=== PATIENT | female | born 1990 | race Two or more races ===

== ENCOUNTER 2020-06-18 12:47 | Outpatient (REF) | payer OTHER, SELFPAY | END 2020-06-18 12:48 | disposition home or self-care (01) | LOC: HO.LAB 12:47 | PROVIDERS: Visit Provider Internal Medicine | DX: Z20.828 Contact with and (suspected) exposure to other viral communicable diseases (principal) | CPT/HCPCS: 87635 ==

== ENCOUNTER 2020-09-10 16:41 | Outpatient (REF) | payer OTHER, SELFPAY | END 2020-09-10 16:42 | disposition home or self-care (01) | LOC: HO.LAB 16:41 | PROVIDERS: Visit Provider Internal Medicine | DX: Z20.822 Contact with and (suspected) exposure to COVID-19 (principal) | CPT/HCPCS: 36415; C9803; U0003 ==

== ENCOUNTER 2020-09-27 08:47 | Outpatient (REF) | payer OTHER, SELFPAY | END 2020-09-27 08:48 | disposition home or self-care (01) | LOC: HO.LAB 08:47 | PROVIDERS: Visit Provider Internal Medicine | DX: Z20.822 Contact with and (suspected) exposure to COVID-19 (principal) | CPT/HCPCS: 36415; C9803; U0003 ==

== ENCOUNTER 2021-04-16 21:59 | Emergency (ER) | payer OTHER, SELFPAY ==
--- NOTE | ~2021-04-16 | XR_ITS ---
EXAMINATION: XR ANKLE, RIGHT CLINICAL INFORMATION: Fall. COMPARISON: Right ankle radiographs dated 06/17/2017. TECHNIQUE: AP, lateral, and mortise views of the right ankle. FINDINGS: No acute fracture or dislocation. The ankle mortise is maintained. No joint space narrowing or marginal osteophytes. No osseous erosion. No abnormal soft tissue calcification. Prominent lateral soft tissue swelling. XR/XR ankle RT 2V IMPRESSION: Prominent lateral soft tissue swelling without acute osseous abnormality.
[2021-04-16 22:14] VITALS: BP 106/67; PULSE 96; RESP 16; TEMP 36.8; O2SAT 98; BMI 40.2
--- NOTE | 2021-04-17 00:22 | ED.LOWEXIN ---
HPI - Extremity Injury (Lower) General Chief Complaint: Extremity Injury, Lower Stated Complaint: fall Time Seen by Provider: 04/17/21 00:08 Source: patient Mode of arrival: wheelchair Limitations: no limitations History of Present Illness HPI Narrative: [age] year female presenting complaint of right ankle pain status post miss stepping and twisting. Denies any other injury. Occurred couple hours prior to arrival. Onset (ago): hour(s) Injury: Right: ankle Type of Injury: inversion Place: home Severity: moderate Relieving factors: immobilization Exacerbating factors: weight bearing and palpation Associated symptoms: swelling Other symptoms: none Treatments prior to arrival: cold therapy Related Data Allergies Allergy/AdvReac Type Severity Reaction Status Date / Time No Known Allergies Allergy Verified 04/16/21 22:17 [No Known Allergies*] Review of Systems Review of Systems: Constitutional: No Weight loss, No Fever, No Chills, No Night Sweats, No Fatigue, No Malaise ENT/Mouth: No Hearing loss, No Ear Pain, No Nasal Congestion, No Sinus Pain, No Hoarseness, No sore throat, No Rhinorrhea, No Swallowing Difficulty Eyes: No Eye Pain, No Swelling, No Redness, No Foreign Body, No Discharge, No Vision Changes Cardiovascular: No Chest Pain, No SOB, No Dyspnea on Exertion, No Orthopnea, No Edema, No Palpitations Respiratory: No Cough, No Sputum, No Wheezing, No Smoke Exposure, No Dyspnea Gastrointestinal: No Nausea, No Vomiting, No Diarrhea, No Constipation, No abdominal Pain, No Hematochezia, No Melena Genitourinary: No Dysuria, No Urinary Frequency, No Hematuria, No Urinary Incontinence, No Urgency, No Flank Pain, No Urinary Flow Changes, No Hesitancy Musculoskeletal: No joint pain, No Myalgias, as noted per HPI Skin: No Skin Lesions, No rash Neuro: No Weakness, No Numbness, No Paresthesias, No Loss of Consciousness, No Dizziness, No Headache Psych: No Social Issues Heme/Lymph: No Bruising, No Bleeding,No Lymphadenopathy Endocrine: No Polyuria, No Polydipsia, No Temperature Intolerance Yes all other systems are reviewed and are negative [facility] Past Medical History Medical History (Updated 04/17/21 @ 00:26 by Kamron Fonseca NP) Anemia Asthma Social History Social History Advance Directives: No Advance Directives Information Provided: No Patient : No Physical Exam Vital Signs: Vital Signs: Last Vital Signs Temp 98.3 F 04/16/21 22:14 Pulse 96 04/16/21 22:14 Resp 16 04/16/21 22:14 BP 106/67 04/16/21 22:14 Pulse Ox 98 04/16/21 22:14 Body Mass Index 40.2 Const: General: cooperative and healthy appearing; No acute distress or intoxicated appearing Nutritional Appearance: average body habitus Orientation/consciousness: patient oriented x3 HENMT: Head: Yes normal to inspection Ears: hearing grossly normal bilaterally Resp: Effort & Inspection: normal respiratory effort Cardio: Jugular venous distension: no JVD : General: Yes no CVA tenderness Back/Spine/Pelvis: Back: no CVA tenderness Skin: General skin exam: no rashes or lesions noted Neuro: General: patient oriented x3 Extrem: General: Yes normal to inspection Right lower extremity: ankle Details: swelling (Neurovascular intact, cap refill within normal limits) Details: laterally Course Course Course Narrative: Patient fitted for an Aircast and crutches MDM - Extremity Injury (Lower) Differential Diagnosis Differential diagnosis: Likely ankle sprain and strain and ankle fracture Medical Records Attestation: I reviewed the patient's medical records. Lab Data Attestation: I reviewed the patient's lab results. Imaging Data Ankle x-ray: Radiologist's impression: [place] [id number] XRay Report Signed Patient: Sylvie Vidales MR#: [id number] : 1990 Acct:[id number] Age/Sex: 30 / F ADM Date: 04/16/21 Loc: HO.ED Attending Dr: Ordering Physician: Generic ED Physician Date of Service: 04/16/21 Procedure(s): XR ankle RT 2V Accession Number(s): [id number] cc: Generic ED Physician~ EXAMINATION: XR ANKLE, RIGHT CLINICAL INFORMATION: Fall.? COMPARISON: Right ankle radiographs dated 06/17/2017.? TECHNIQUE: AP, lateral, and mortise views of the right ankle. FINDINGS: No acute fracture or dislocation. The ankle mortise is maintained. No joint space narrowing or marginal osteophytes. No osseous erosion. No abnormal soft tissue calcification. Prominent lateral soft tissue swelling.? XR/XR ankle RT 2V IMPRESSION: Prominent lateral soft tissue swelling without acute osseous abnormality. Dictated By: DULCE ARNDT MD Signed By: <Electronically signed by DULCE ARNDT MD in OV> 04/16/21 [id number] DD/ [id number] TD/TT:? Paper Hanger: Discharge Plan Discharge Clinical Impression: Ankle sprain and strain Patient Disposition: Home, Self-Care Instructions: Crutch Instructions (ED), Ice Pack Application (ED), Ankle Strain (ED) Referrals: Physician,Unknown [Primary Care Provider] - 2 days
== END 2021-04-17 00:31 | disposition home or self-care (01) ==
PROVIDERS: Emergency Provider Emergency Medicine
DX: S93.401A Sprain of unspecified ligament of right ankle, initial encounter (principal); S96.911A Strain of unspecified muscle and tendon at ankle and foot level, right foot, initial encounter; X50.1XXA Overexertion from prolonged static or awkward postures, initial encounter; Y93.89 Activity, other specified; Y92.018 Other place in single-family (private) house as the place of occurrence of the external cause; Y99.9 Unspecified external cause status
CPT/HCPCS: 73600; 99283; 99284

== ENCOUNTER 2021-05-18 13:17 | Outpatient (REF) | payer OTHER, SELFPAY | END 2021-05-18 13:18 | disposition home or self-care (01) | LOC: HO.LAB 13:17 | PROVIDERS: Visit Provider Internal Medicine | DX: Z20.822 Contact with and (suspected) exposure to COVID-19 (principal) | CPT/HCPCS: C9803; U0003; U0005 ==

== ENCOUNTER 2021-08-11 15:54 | Emergency (ER) | payer OTHER, SELFPAY ==
[2021-08-11] VITALS (7 sets, daily range): BP systolic 101–130; BP diastolic 57–81; PULSE 73–94; RESP 16–18; TEMP 36.4–36.6; O2SAT 99–100; BMI 40.2
--- NOTE | 2021-08-11 17:04 | ED_ITS ---
HPI - General Adult General Chief complaint: Vaginal Bleeding Stated complaint: INCREASED LETHARGY,MENSTRUATION W/HX OF ANEMIA Time Seen by Provider: 08/11/21 16:14 Source: patient Mode of arrival: ambulatory History of Present Illness HPI narrative: 30-year-old female with a past medical history of anemia, asthma, presenting to the ED complaining of heavy vaginal bleeding with clots since yesterday, changing pad often. Admits started menstruation yesterday. Reports similar symptoms in the past. Reports near syncopal episode earlier today, nausea, vomiting, diarrhea and generalized fatigue. Denies abdominal pain, fever, chills, dysuria, vaginal discharge, LOC Onset (ago): day(s) Related Data Allergies Allergy/AdvReac Type Severity Reaction Status Date / Time No Known Allergies Allergy Verified 04/16/21 22:17 [No Known Allergies*] Review of Systems Review of Systems: Constitutional: No Fever, No Chills, No Night Sweats, + Fatigue, + Malaise ENT/Mouth: No Hearing loss, No Ear Pain, No Nasal Congestion, No sore throat, No Rhinorrhea, No Swallowing Difficulty Eyes: No Eye Pain, No Swelling, No Vision Changes Cardiovascular: No Chest Pain, No SOB, No Palpitations Respiratory: No Cough, No Dyspnea Gastrointestinal: + Nausea, + Vomiting, + Diarrhea, No Constipation, No Abdominal pain Genitourinary: + irregular bleeding, No Dysuria, No Urinary Frequency, No Hematuria, No Flank Pain Musculoskeletal: No joint pain, No Myalgias, No Joint Swelling Skin: No Skin Lesions, No rash Neuro: + Weakness, No Numbness, No Paresthesias, No Loss of Consciousness, + Lightheadedness, No Headache Yes all other systems are reviewed and are negative [facility] Past Medical History Attestation statement: The following information was validated with the patient. Medical History Anemia Asthma Social History Social History Advance Directives: No Advance Directives Information Provided: Yes Physical Exam Vital Signs: Vital Signs: Last Vital Signs Temp 98 F 08/11/21 16:08 Pulse 84 08/11/21 17:53 Resp 16 08/11/21 17:53 BP 130/81 08/11/21 17:53 Pulse Ox 99 08/11/21 17:53 BMI result Body Mass Index 40.2 Const: General: cooperative, healthy appearing and no acute distress Orientation/consciousness: patient oriented x3 Limitations: no limitations HENMT: Head: Yes normal to inspection Ears: hearing grossly normal bilaterally General nose exam: Normal external nose present Face and sinus: Yes normal facial exam Eyes: General: appearance normal, both eyes and all related structures EOM: EOMs intact bilaterally Neck: Neck: Yes normal visual inspection and Yes no meningeal signs Resp: Effort & Inspection: normal respiratory effort and no respiratory distress Auscultation: clear to auscultation bilaterally, no rales, no rhonchi and no wheezes Cardio: Rate: regular rate Heart sounds: S1 normal heart sound present and S2 normal heart sound present GI: Inspection: Yes normal to inspection Palpation (GI): Soft to palpation, nontender, no guarding and not rigid : Other: Vaginal bleeding in the vault, cleared with Q-tips, bleeding from Os, no active hemorrhage. No CMT or adnexal tenderness General: Yes no CVA tenderness Speculum Exam - Vagina: vaginal bleeding and nontender Speculum Exam - Cervix: nontender Bimanual exam- vagina & uterus: normal bimanual exam, No Cervical tenderness present and no cervical motion tenderness Bimanual Exam- Adnexa, other: normal adnexae and no tenderness OB/external & speculum: vaginal bleeding; No vaginal discharge Back/Spine/Pelvis: Back: no CVA tenderness Skin: Rashes: no rashes Wounds: no wounds Neuro: General: patient oriented x3 and no meningeal signs Gait exam (Neuro): Normal gait present Extrem: General: Yes normal to inspection Course Course Course Narrative: -1751--noted leukocytosis of 19.1 appears chronic, also likely reactive from nausea/vomiting. Low concern for infectious etiology or sepsis -H&H with drop from priors to 8.8 / 29.5 > will obtain 3 hour repeat. Type and screen ordered. Blood consent signed and in chart -orthostatic vital signs negative -1800-- ED care transferred to SHER[facility] Thomas pending remaining labs, repeat 3hr CBC, UA/urine , orthostatics and re-evaluation. Medical Decision Making MDM Narrative Medical decision making narrative: 30-year-old female with a past medical history of anemia, asthma, presenting to the ED complaining of heavy vaginal bleeding with clots since yesterday, changing pad often. Reports near syncopal episode earlier today, nausea, vomiting, diarrhea and generalized fatigue. On exam vital signs stable, no tachycardia, NAD, abdomen soft/nontender, vaginal bleeding noted in vault, no active hemorrhage, cleared with Q-tips, no CMT or adnexal tenderness. Concern for DUB/menorrhagia. Rule out and anemia. Low concern for ectopic, cyst, appendicitis or diverticulitis Plan: Labs, UA, , IVF, orthostatics Lab Data Result diagrams: 08/11/21 17:32 08/11/21 17:32 Labs: Lab Results 08/11/21 08/11/21 Range/Units 17:32 17:32 WBC 19.1 H (4.8-10.8) X10*3/uL RBC 3.76 L (4.20-5.50) X10*6/uL Hgb 8.8 L (12.0-16.0) g/dl Hct 29.5 L (37.0-47.0) % MCV 78.5 L (80.0-98.0) fL MCH 23.4 L (27.0-33.0) pg MCHC 29.8 L (31.0-35.0) g/dl RDW 16.3 H (11.0-16.0) % Plt Count 510 H (160-400) X10*3/uL MPV 8.8 L (9.4-12.3) fL Immature Gran % (Auto) 0.4 (0.0-0.4) % Neut % (Auto) 88.6 H (45-73) % Lymph % (Auto) 6.1 L (20-40) % Mower % (Auto) 4.3 (2-11) % Eos % (Auto) 0.2 (0-4) % Baso % (Auto) 0.4 (0-2) % Lymph # (Auto) 1.2 (1.2-4.9) X10*3/uL Mower # (Auto) 0.8 (0.1-1.2) X10*3/uL Eos # (Auto) 0.0 (0.0-0.4) X10*3/uL Baso # (Auto) 0.1 (0.0-0.2) X10*3/uL Abs Immat Gran (auto) 0.08 H (0.00-0.03) X10*3/uL Absolute Neuts (auto) 16.9 H (2.0-8.3) x10*3/uL Absolute Nucleated RBC 0.000 (0.0-0.012) X10*3/uL Nucleated RBC % (auto) 0.0 (0.0-0.2) /100WBC Sodium 138 (135-145) mmol/L Potassium 4.2 (3.3-5.1) mmol/L Chloride 107 (96-108) mmol/L Carbon Dioxide 20 L (22-29) mmol/L Anion Gap 15 (12-20) BUN 17 H (9-16) mg/dL Creatinine 0.87 (0.5-1.4) mg/dL Estim Creat Clear Calc 105.3 Estimated GFR > 60 Random Glucose 80 (60-115) mg/dL Calcium 9.4 (8.4-10.2) mg/dL Magnesium 2.1 (1.6-2.6) mg/dL Total Bilirubin 0.8 (0.0-1.0) mg/dL Direct Bilirubin 0.4 (0.0-0.5) mg/dL AST 17 (5-31) U/L ALT 15 (0-31) U/L Alkaline Phosphatase 78 (39-117) U/L Total Protein 7.8 (6.5-8.0) g/dL Albumin 4.6 (3.5-5.0) g/dL Lipase 32 (8-78) U/L Beta HCG, Quant < 2 mIU/mL Discharge Plan Discharge Clinical Impression: Anemia Menorrhagia Qualifiers: Menorrhagia type: with regular cycle Qualified Code(s): N92.0 - Excessive and frequent menstruation with regular cycle Instructions: Menorrhagia (ED) Referrals: Vipin Dempsey MD [Physician] - 2 days
[2021-08-11 17:37] LABS: MANUAL DIFF FLAG NO
[2021-08-11 17:46] LABS: Basophils Absolute Auto 0.1 X10*3/uL (0.0-0.2); Basophils Percent Auto 0.4 % (0-2); Eosinophils Percent Auto 0.2 % (0-4); Hematocrit 29.5 % (37.0-47.0); Hemoglobin 8.8 g/dl (12.0-16.0); Imm Gran Abs Auto 0.08 X10*3/uL (0.00-0.03); Imm Gran Pct Auto 0.4 % (0.0-0.4); Lymphocytes Absolute Auto 1.2 X10*3/uL (1.2-4.9); Lymphocytes Percent Auto 6.1 % (20-40); Mean Corpuscular HGB Conc 29.8 g/dl (31.0-35.0); Mean Corpuscular Hemoglobin 23.4 pg (27.0-33.0); Mean Corpuscular Volume 78.5 fL (80.0-98.0); Mean Platelet Volume 8.8 fL (9.4-12.3); Monocytes Absolute Auto 0.8 X10*3/uL (0.1-1.2); Monocytes Percent Auto 4.3 % (2-11); Neutrophils Absolute Auto 16.9 x10*3/uL (2.0-8.3); Neutrophils Percent Auto 88.6 % (45-73); Platelet Count 510 X10*3/uL (160-400); Red Blood Count 3.76 X10*6/uL (4.20-5.50); Red Cell Distribution Width 16.3 % (11.0-16.0); White Blood Count 19.1 X10*3/uL (4.8-10.8)
[2021-08-11] MEDS: 0.9 % Sodium Chloride 1,000 ML 999 ML IVCONT (17:46)
[2021-08-11 18:01] LABS: Alanine Aminotransferase 15 U/L (0-31); Albumin Level 4.6 g/dL (3.5-5.0); Alkaline Phosphatase 78 U/L (39-117); Anion Gap 15 (12-20); Aspartate Amino Transferase 17 U/L (5-31); Bilirubin Direct 0.4 mg/dL (0.0-0.5); Bilirubin Total 0.8 mg/dL (0.0-1.0); Blood Urea Nitrogen 17 mg/dL (9-16); Calcium 9.4 mg/dL (8.4-10.2); Carbon Dioxide 20 mmol/L (22-29); Chloride 107 mmol/L (96-108); Creatinine Clr Calc Pharmacy 105.3; Estimated Glomerular Filt Rate > 60; Glucose Random 80 mg/dL (60-115); Lipase 32 U/L (8-78); Magnesium 2.1 mg/dL (1.6-2.6); Potassium 4.2 mmol/L (3.3-5.1); Sodium 138 mmol/L (135-145); Total Protein 7.8 g/dL (6.5-8.0)
[2021-08-11 18:07] LABS: HCG Quantitative < 2 mIU/mL
[2021-08-11 20:08] LABS: MANUAL DIFF FLAG NO
[2021-08-11 20:09] LABS: Basophils Absolute Auto 0.1 X10*3/uL (0.0-0.2); Basophils Percent Auto 0.5 % (0-2); Eosinophils Percent Auto 0.1 % (0-4); Hematocrit 27.7 % (37.0-47.0); Hemoglobin 8.2 g/dl (12.0-16.0); Imm Gran Abs Auto 0.04 X10*3/uL (0.00-0.03); Imm Gran Pct Auto 0.3 % (0.0-0.4); Lymphocytes Absolute Auto 1.4 X10*3/uL (1.2-4.9); Lymphocytes Percent Auto 9.4 % (20-40); Mean Corpuscular HGB Conc 29.6 g/dl (31.0-35.0); Mean Corpuscular Hemoglobin 23.3 pg (27.0-33.0); Mean Corpuscular Volume 78.7 fL (80.0-98.0); Mean Platelet Volume 8.7 fL (9.4-12.3); Monocytes Absolute Auto 0.5 X10*3/uL (0.1-1.2); Monocytes Percent Auto 3.4 % (2-11); Neutrophils Absolute Auto 12.8 x10*3/uL (2.0-8.3); Neutrophils Percent Auto 86.3 % (45-73); Platelet Count 468 X10*3/uL (160-400); Red Blood Count 3.52 X10*6/uL (4.20-5.50); Red Cell Distribution Width 16.5 % (11.0-16.0); White Blood Count 14.8 X10*3/uL (4.8-10.8)
== END 2021-08-11 21:40 | disposition home or self-care (01) ==
PROVIDERS: Physician Assistant; Emergency Provider Emergency Medicine
DX: D64.9 Anemia, unspecified (principal); N92.0 Excessive and frequent menstruation with regular cycle; R11.2 Nausea with vomiting, unspecified
CPT/HCPCS: 36415; 80048; 80076; 83690; 83735; 84702; 85025; 86850; 86900; 86901; 96360; 99284

== ENCOUNTER 2021-08-24 11:25 | Outpatient (REF) | payer OTHER, SELFPAY ==
[2021-08-24 13:06] LABS: Hematocrit 34.7 % (37.0-47.0); Hemoglobin 10.4 g/dl (12.0-16.0); Mean Corpuscular Hemoglobin 25.9 pg (27.0-33.0); Mean Corpuscular Volume 86.3 fL (80.0-98.0); Mean Platelet Volume 8.9 fL (9.4-12.3); Platelet Count 509 X10*3/uL (160-400); Red Blood Count 4.02 X10*6/uL (4.20-5.50); Red Cell Distribution Width 23.1 % (11.0-16.0); White Blood Count 9.2 X10*3/uL (4.8-10.8)
[2021-08-24 13:45] LABS: HCG Quantitative < 2 mIU/mL; TSH reflex Free T4 0.54 uIU/mL (0.32-4.0)
[2021-08-24 15:23] LABS: CT PCR NOT DETECTED (Not Detect.); NG PCR NOT DETECTED (Not Detect.)
== END 2021-08-24 11:26 | disposition home or self-care (01) ==
LOC: HO.LAB 11:25
PROVIDERS: Visit Provider Obstetrics & Gynecology
DX: Z01.419 Encounter for gynecological examination (general) (routine) without abnormal findings (principal); N93.9 Abnormal uterine and vaginal bleeding, unspecified; Z11.3 Encounter for screening for infections with a predominantly sexual mode of transmission; Z11.8 Encounter for screening for other infectious and parasitic diseases; Z13.29 Encounter for screening for other suspected endocrine disorder; Z82.49 Family history of ischemic heart disease and other diseases of the circulatory system
CPT/HCPCS: 36415; 81003; 81025; 84443; 84702; 85027; 87491; 87591; 88142; 99202

== ENCOUNTER 2021-09-06 01:54 | Emergency (ER) | payer OTHER, SELFPAY ==
[2021-09-06] VITALS (7 sets, daily range): BP systolic 71–111; BP diastolic 41–75; PULSE 93–124; RESP 12–18; TEMP 34.7–36.6; O2SAT 98–100; BMI 40.2
[2021-09-06] MEDS: 0.9 % Sodium Chloride 1,000 ML 999 ML IVCONT (02:31)
[2021-09-06 02:34] LABS: Glucose, Whole Blood 122 mg/dL (60-115)
--- NOTE | 2021-09-06 02:48 | ED.FEMALEGU ---
HPI - Female Genitourinary General Chief complaint: Vaginal Bleeding Stated complaint: vaginal bleeding Time Seen by Provider: 09/06/21 02:16 Source: patient Mode of arrival: ambulatory Limitations: no limitations History of Present Illness HPI Narrative: Patient comes to emergency room complaining of dizziness, vaginal bleeding for 3 days. Patient states that she started her menstrual period 3 days ago. Patient states that she is using approximately 5-6 pads per hour in the last 24 hours. Patient states that she is known to have very heavy menstrual periods. Patient is being seen at [facility] by Hematology/Oncology for evaluation of genetic bleeding diseases, which is still in process. Patient has received 1 iron transfusion, no blood transfusions. Patient has also been evaluated by Dr. Dempsey from [facility] Gy[facility], patient states that the next plan is to get a Mirena IUD. Patient complaining of dizziness when standing an feeling overall sick and weak Related Data Home Medications Medication Instructions Recorded Confirmed budesonide-formoterol HFA 160 2 puff INHALATION BID 08/24/21 mcg-4.5 mcg/actuation aerosol inhaler (Symbicort) ibuprofen 200 mg tablet 400 mg PO Q6H 08/24/21 loratadine 10 mg tablet 10 mg PO DAILY 08/24/21 norethindrone (contraceptive) 0.35 0.35 mg PO DAILY 08/24/21 mg tablet Allergies Allergy/AdvReac Type Severity Reaction Status Date / Time No Known Allergies Allergy Verified 08/24/21 11:35 [No Known Allergies*] Review of Systems Review of Systems: Constitutional : No Weight loss, No Fever, No Chills, No Night Sweats, complaining of weakness, generalized malaise ENT/Mouth : No Hearing loss, No Ear Pain, No Nasal Congestion, No Sinus Pain, No Hoarseness, No sore throat, No Rhinorrhea, No Swallowing Difficulty Eyes: No Eye Pain, No Swelling, No Redness, No Foreign Body, No Discharge, No Vision Changes Cardiovascular : No Chest Pain, No SOB, No Dyspnea on Exertion, No Orthopnea, No Edema, No Palpitations Respiratory : No Cough, No Sputum, No Wheezing, No Smoke Exposure, No Dyspnea Gastrointestinal : No Nausea, No Vomiting, No Diarrhea, No Constipation, No abdominal Pain, No Hematochezia, No Melena Genitourinary : Complaining of heavy vaginal bleeding for 3 days. No Dysuria, No Urinary Frequency, No Hematuria, No Urinary Incontinence, No Urgency, No Flank Pain, No Urinary Flow Changes, No Hesitancy Musculoskeletal : No joint pain, No Myalgias, No Joint Swelling Skin : No Skin Lesions, No rash Neuro : No Weakness, No Numbness, No Paresthesias, No Loss of Consciousness, no headache, complaining of dizziness/lightheadedness Psych : No Anxiety/Panic, No Depression, No SI/HI/AH/VH, No Social Issues, Heme/Lymph: No Bruising, No Bleeding,No Lymphadenopathy Endocrine : No Polyuria, No Polydipsia, No Temperature Intolerance [facility] Past Medical History Medical History Anemia Asthma Surgical History Hx of cholecystectomy Family History Family History Paternal Grandmother Colon cancer History of breast cancer Maternal Grandmother Ovarian cancer Mother Varicose vein of leg Hx of blood clots Social History Social History (Updated 08/24/21 @ 11:39 by Theresa Hickman [facility]) Alcohol intake: current Patient Tobacco Use Status: Never used Tobacco Advance Directives: No Advance Directives Information Provided: Yes Patient : No Physical Exam Vital Signs: Vital Signs: Last Vital Signs Temp 97.9 F 09/06/21 06:00 Pulse 94 09/06/21 06:00 Resp 14 09/06/21 06:00 BP 103/71 09/06/21 06:00 Pulse Ox 100 09/06/21 06:00 BMI result Body Mass Index 40.2 Const: Other: Appearance: Alert. Oriented X3. Ill-appearing Eyes: Pupils equal, round and reactive to light. ENT: Pharynx normal. Neck: Normal inspection. Neck supple. No lymph nodes noted. No crepitus CVS: Normal heart rate and rhythm. Pulses normal. Normal S1 and S2 Respiratory: No respiratory distress. Breath sounds normal. No Wheezing. No rales Abdomen: Soft and nontender. No rigidity. No distention. : Small to moderate amount in the vaginal vault, the cervix has a slight yellowish discoloration, no active bleeding. One suprapubic pressure was applied, no additional bleeding visualized through the cervix. Skin: Skin warm and clammy. Diffusely pale Extremities: No lower extremity edema. No lower extremity edema. No Lacerations. No Rash Neuro: Oriented X 3. No motor deficit. No sensory deficit. Moving all extermities. No slurred speech. Course Course Course Narrative: Patient's initial blood pressure in the 70s. After 1 L of fluid patient's heart rate improved to 115. All of her labs are pending Patient's H and H drop. At this time, patient does not need transfusion. I discussed the patient with Dr. Dempsey. Patient will be seen 1st thing in the morning. We are going to discharge her and she wheels shortly receive a phone call. Patient needs today an endometrial biopsy and Mirena placement. Patient agrees with plan. MDM - Female Genitourinary Lab Data Result diagrams: 09/06/21 05:21 09/06/21 02:32 Labs: Lab Results 09/06/21 09/06/21 09/06/21 Range/Units 02:30 02:32 02:32 WBC 18.4 H (4.8-10.8) X10*3/uL RBC 3.66 L (4.20-5.50) X10*6/uL Hgb 9.7 L (12.0-16.0) g/dl Hct 32.1 L (37.0-47.0) % MCV 87.7 (80.0-98.0) fL MCH 26.5 L (27.0-33.0) pg MCHC 30.2 L (31.0-35.0) g/dl RDW 20.8 H (11.0-16.0) % Plt Count 526 H (160-400) X10*3/uL MPV 9.4 (9.4-12.3) fL Immature Gran % (Auto) 0.5 H (0.0-0.4) % Neut % (Auto) 64.7 (45-73) % Lymph % (Auto) 27.5 (20-40) % [place] % (Auto) 5.2 (2-11) % Eos % (Auto) 1.4 (0-4) % Baso % (Auto) 0.7 (0-2) % Lymph # (Auto) 5.1 H (1.2-4.9) X10*3/uL [place] # (Auto) 1.0 (0.1-1.2) X10*3/uL Eos # (Auto) 0.3 (0.0-0.4) X10*3/uL Baso # (Auto) 0.1 (0.0-0.2) X10*3/uL Abs Immat Gran (auto) 0.09 H (0.00-0.03) X10*3/uL Absolute Neuts (auto) 11.9 H (2.0-8.3) x10*3/uL Absolute Nucleated RBC 0.000 (0.0-0.012) X10*3/uL Nucleated RBC % (auto) 0.0 (0.0-0.2) /100WBC Smear Tech's Comments VERIFIED Sodium 139 (135-145) mmol/L Potassium 4.3 (3.3-5.1) mmol/L Chloride 106 (96-108) mmol/L Carbon Dioxide 21 L (22-29) mmol/L Anion Gap 16 (12-20) BUN 16 (9-16) mg/dL Creatinine 0.99 (0.5-1.4) mg/dL Estim Creat Clear Calc 92.6 Estimated GFR > 60 POC Glucose 122 H (60-115) mg/dL Random Glucose 142 H (60-115) mg/dL Calcium 9.4 (8.4-10.2) mg/dL Total Bilirubin 0.4 (0.0-1.0) mg/dL Direct Bilirubin < 0.2 (0.0-0.5) mg/dL AST 18 (5-31) U/L ALT 25 (0-31) U/L Alkaline Phosphatase 77 (39-117) U/L Total Protein 7.2 (6.5-8.0) g/dL Albumin 4.4 (3.5-5.0) g/dL Beta HCG, Quant < 2 mIU/mL COVID-19 (JOANNA) (Negative) COVID-19 Clin Com Blood Type Antibody Screen 09/06/21 09/06/21 09/06/21 Range/Units 02:33 05:13 05:21 WBC (4.8-10.8) X10*3/uL RBC (4.20-5.50) X10*6/uL Hgb 8.2 L (12.0-16.0) g/dl Hct 26.3 L (37.0-47.0) % MCV (80.0-98.0) fL MCH (27.0-33.0) pg MCHC (31.0-35.0) g/dl RDW (11.0-16.0) % Plt Count (160-400) X10*3/uL MPV (9.4-12.3) fL Immature Gran % (Auto) (0.0-0.4) % Neut % (Auto) (45-73) % Lymph % (Auto) (20-40) % [place] % (Auto) (2-11) % Eos % (Auto) (0-4) % Baso % (Auto) (0-2) % Lymph # (Auto) (1.2-4.9) X10*3/uL [place] # (Auto) (0.1-1.2) X10*3/uL Eos # (Auto) (0.0-0.4) X10*3/uL Baso # (Auto) (0.0-0.2) X10*3/uL Abs Immat Gran (auto) (0.00-0.03) X10*3/uL Absolute Neuts (auto) (2.0-8.3) x10*3/uL Absolute Nucleated RBC (0.0-0.012) X10*3/uL Nucleated RBC % (auto) (0.0-0.2) /100WBC Smear Tech's Comments Sodium (135-145) mmol/L Potassium (3.3-5.1) mmol/L Chloride (96-108) mmol/L Carbon Dioxide (22-29) mmol/L Anion Gap (12-20) BUN (9-16) mg/dL Creatinine (0.5-1.4) mg/dL Estim Creat Clear Calc Estimated GFR POC Glucose (60-115) mg/dL Random Glucose (60-115) mg/dL Calcium (8.4-10.2) mg/dL Total Bilirubin (0.0-1.0) mg/dL Direct Bilirubin (0.0-0.5) mg/dL AST (5-31) U/L ALT (0-31) U/L Alkaline Phosphatase (39-117) U/L Total Protein (6.5-8.0) g/dL Albumin (3.5-5.0) g/dL Beta HCG, Quant mIU/mL COVID-19 (JOANNA) Negative (Negative) COVID-19 Clin Com See Note Blood Type O Positive Antibody Screen NEGATIVE Discharge Plan Discharge Clinical Impression: Menorrhagia Patient Disposition: Home, Self-Care Instructions: Menorrhagia (ED) Additional Instructions: You will receive a phone call from Dr. Dempsey's office this morning. You will likely get an endometrial biopsy and an IUD insertion. Please follow-up with your primary care physician tomorrow. If you have any worsening or new symptoms, please return to the emergency room or call 911 Prescriptions: No Action norethindrone (contraceptive) 0.35 mg tablet 0.35 mg PO DAILY RF: 0 loratadine 10 mg tablet 10 mg PO DAILY RF: 0 budesonide-formoterol [Symbicort] 160-4.5 mcg/actuation HFA aerosol inhaler 2 puff inhalation BID RF: 0 ibuprofen 200 mg tablet 400 mg PO Q6H RF: 0 Referrals: Vipin Dempsey MD [Physician] - 09/06/21 9:00 am (Menorrhagia)
[2021-09-06 02:53] LABS: Basophils Absolute Auto 0.1 X10*3/uL (0.0-0.2); Basophils Percent Auto 0.7 % (0-2); Eosinophils Absolute Auto 0.3 X10*3/uL (0.0-0.4); Eosinophils Percent Auto 1.4 % (0-4); Hematocrit 32.1 % (37.0-47.0); Hemoglobin 9.7 g/dl (12.0-16.0); Imm Gran Abs Auto 0.09 X10*3/uL (0.00-0.03); Imm Gran Pct Auto 0.5 % (0.0-0.4); Lymphocytes Absolute Auto 5.1 X10*3/uL (1.2-4.9); Lymphocytes Percent Auto 27.5 % (20-40); MANUAL DIFF FLAG SCAN; Mean Corpuscular HGB Conc 30.2 g/dl (31.0-35.0); Mean Corpuscular Hemoglobin 26.5 pg (27.0-33.0); Mean Corpuscular Volume 87.7 fL (80.0-98.0); Mean Platelet Volume 9.4 fL (9.4-12.3); Monocytes Percent Auto 5.2 % (2-11); Neutrophils Absolute Auto 11.9 x10*3/uL (2.0-8.3); Neutrophils Percent Auto 64.7 % (45-73); Platelet Count 526 X10*3/uL (160-400); Red Blood Count 3.66 X10*6/uL (4.20-5.50); Red Cell Distribution Width 20.8 % (11.0-16.0); SCAN SMEAR FLAG 1; White Blood Count 18.4 X10*3/uL (4.8-10.8)
[2021-09-06 03:04] LABS: Alanine Aminotransferase 25 U/L (0-31); Albumin Level 4.4 g/dL (3.5-5.0); Alkaline Phosphatase 77 U/L (39-117); Anion Gap 16 (12-20); Aspartate Amino Transferase 18 U/L (5-31); Bilirubin Direct < 0.2 mg/dL (0.0-0.5); Bilirubin Total 0.4 mg/dL (0.0-1.0); Blood Urea Nitrogen 16 mg/dL (9-16); Calcium 9.4 mg/dL (8.4-10.2); Carbon Dioxide 21 mmol/L (22-29); Chloride 106 mmol/L (96-108); Creatinine Clr Calc Pharmacy 92.6; Estimated Glomerular Filt Rate > 60; Glucose Random 142 mg/dL (60-115); Potassium 4.3 mmol/L (3.3-5.1); Sodium 139 mmol/L (135-145); Total Protein 7.2 g/dL (6.5-8.0)
[2021-09-06 03:11] LABS: HCG Quantitative < 2 mIU/mL
[2021-09-06 03:21] LABS: SLIDE REVIEW VERIFIED
--- NOTE | 2021-09-06 03:23 | PC.NURSE ---
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
[2021-09-06 05:26] LABS: Hematocrit 26.3 % (37.0-47.0); Hemoglobin 8.2 g/dl (12.0-16.0)
[2021-09-06 05:52] LABS: COVID-19 Test Negative (Negative); IDNOW Serial# 9DD0AD1C
--- NOTE | 2021-09-06 08:00 | PC.NURSE ---
0715 - Report from Allyson ORTIZ Pt awake, alert and oriented x 3. Skin warm and dry. Resp unlabored. Denies n/v. no c/o pain presently. No acute bleeding. plan is for dc home and follow up with electrical test engineer. Pt agreeable to plan
== END 2021-09-06 08:06 | disposition home or self-care (01) ==
PROVIDERS: Emergency Provider Emergency Medicine; PCP Internal Medicine
DX: N92.0 Excessive and frequent menstruation with regular cycle (principal); R42 Dizziness and giddiness; Z20.822 Contact with and (suspected) exposure to COVID-19; D64.9 Anemia, unspecified
CPT/HCPCS: 36415; 58100; 58300; 80048; 80076; 82947; 84702; 85014; 85018; 85025; 86850; 86900; 86901; 87635; 96360; 99212; 99284; 99285; J7298

== ENCOUNTER 2021-09-06 12:20 | Outpatient (REF) | payer OTHER, SELFPAY | END 2021-09-06 12:21 | disposition home or self-care (01) | LOC: HO.LAB 12:20 | PROVIDERS: Visit Provider Obstetrics & Gynecology | DX: N93.9 Abnormal uterine and vaginal bleeding, unspecified (principal) | CPT/HCPCS: 88305 ==

== ENCOUNTER 2021-09-26 11:14 | Outpatient (REF) | payer OTHER, SELFPAY ==
--- NOTE | ~2021-09-26 | US_ITS ---
EXAMINATION: US PELVIS CLINICAL INFORMATION: Abnormal uterine bleeding COMPARISON: None TECHNIQUE: Ultrasound of the pelvis is performed using both transabdominal and transvaginal transducers along with Doppler. Transvaginal imaging is performed due to inadequate visualization transabdominally. FINDINGS: The uterus is anteverted and retroflexed and measures 11.3 x 5.2 x 6 cm in dimension. There is an IUD in the uterus in satisfactory position. Endometrial thickness measures 1.2 cm. There are 3 uterine fibroids. There is a 4.3 x 4 x 4.3 cm central fibroid in the body of the uterus that abut the endometrium suggestive of a subcutaneous fibroid. There is a 2.2 x 2.1 x 2.1 cm anterior uterine body intramural fibroid. There is a 1.6 x 1.7 x 1.8 cm right intramural body fibroid. The right ovary is enlarged and measures 4.1 x 4.3 x 4.1 cm, volume 38 mL. There is a 4 x 3 x 4 cm simple cyst. The left ovary is enlarged and measures 7.8 x 3.5 x 4.3 cm, volume 61 mL. There is a 5.4 x 2.9 x 3 cm simple left ovarian cyst. There is no fluid in the pelvis. US/US pelvic and transvaginal IMPRESSION: Enlarged fibroid uterus. Largest fibroid is a 4.3 x 4 x 4.3 cm central uterine body fibroid that abut the endometrium suggestive of a submucosal fibroid. IUD in the uterus satisfactory position. Large bilateral simple ovarian cysts measuring 3 x 4 cm on the right and 3 x 5 cm on the left.
== END 2021-09-26 11:15 | disposition home or self-care (01) ==
LOC: HO.US 11:14
PROVIDERS: Visit Provider Obstetrics & Gynecology
DX: N93.9 Abnormal uterine and vaginal bleeding, unspecified (principal)
CPT/HCPCS: 76830; 76856

== ENCOUNTER → 2021-10-19 15:35 | Outpatient (BNVA) | payer OTHER, SELFPAY | PROVIDERS: Visit Provider Obstetrics & Gynecology | DX: N93.9 Abnormal uterine and vaginal bleeding, unspecified (principal); D64.9 Anemia, unspecified; D21.9 Benign neoplasm of connective and other soft tissue, unspecified | CPT/HCPCS: 99212 ==

== ENCOUNTER 2021-11-28 11:16 | Outpatient (REF) | payer OTHER, SELFPAY ==
[2021-11-28 12:46] LABS: Hematocrit 28.7 % (37.0-47.0); Hemoglobin 8.8 g/dl (12.0-16.0); Mean Corpuscular HGB Conc 30.7 g/dl (31.0-35.0); Mean Corpuscular Hemoglobin 27.4 pg (27.0-33.0); Mean Corpuscular Volume 89.4 fL (80.0-98.0); Mean Platelet Volume 9.2 fL (9.4-12.3); Platelet Count 423 X10*3/uL (160-400); Red Blood Count 3.21 X10*6/uL (4.20-5.50); Red Cell Distribution Width 14.5 % (11.0-16.0); White Blood Count 9.9 X10*3/uL (4.8-10.8)
== END 2021-11-28 11:17 | disposition home or self-care (01) ==
LOC: HO.LAB 11:16
PROVIDERS: Visit Provider Obstetrics & Gynecology
DX: D21.9 Benign neoplasm of connective and other soft tissue, unspecified (principal); D64.9 Anemia, unspecified
CPT/HCPCS: 36415; 85027; 99212

== ENCOUNTER 2021-11-29 07:43 | Outpatient (REF) | payer OTHER, SELFPAY ==
[2021-11-29 08:23] LABS: COVID-19 Test Negative (Negative); IDNOW Serial# 16C4AD1C
== END 2021-11-29 07:44 | disposition home or self-care (01) ==
LOC: HO.LAB 07:43
PROVIDERS: Visit Provider Internal Medicine
DX: Z20.822 Contact with and (suspected) exposure to COVID-19 (principal)
CPT/HCPCS: 87635; C9803

== ENCOUNTER 2021-12-26 20:42 | Emergency (ER) | payer BC, SELFPAY ==
[2021-12-26 20:46] VITALS: BP 120/82; PULSE 130; RESP 18; TEMP 36.7; O2SAT 98; BMI 39.3
[2021-12-26 20:58] LABS: MANUAL DIFF FLAG NO
[2021-12-26 20:59] LABS: Basophils Absolute Auto 0.1 X10*3/uL (0.0-0.2); Basophils Percent Auto 0.9 % (0-2); Eosinophils Absolute Auto 0.1 X10*3/uL (0.0-0.4); Eosinophils Percent Auto 0.6 % (0-4); Hematocrit 30.3 % (37.0-47.0); Hemoglobin 9.6 g/dl (12.0-16.0); Imm Gran Abs Auto 0.06 X10*3/uL (0.00-0.03); Imm Gran Pct Auto 0.4 % (0.0-0.4); Lymphocytes Absolute Auto 2.6 X10*3/uL (1.2-4.9); Lymphocytes Percent Auto 18.8 % (20-40); Mean Corpuscular HGB Conc 31.7 g/dl (31.0-35.0); Mean Corpuscular Hemoglobin 29.6 pg (27.0-33.0); Mean Corpuscular Volume 93.5 fL (80.0-98.0); Mean Platelet Volume 9.5 fL (9.4-12.3); Monocytes Absolute Auto 0.6 X10*3/uL (0.1-1.2); Monocytes Percent Auto 4.4 % (2-11); Neutrophils Absolute Auto 10.5 x10*3/uL (2.0-8.3); Neutrophils Percent Auto 74.9 % (45-73); Platelet Count 359 X10*3/uL (160-400); Red Blood Count 3.24 X10*6/uL (4.20-5.50); Red Cell Distribution Width 19.3 % (11.0-16.0)
[2021-12-26 21:16] LABS: Alanine Aminotransferase 17 U/L (0-31); Albumin Level 4.2 g/dL (3.5-5.0); Alkaline Phosphatase 62 U/L (39-117); Anion Gap 10 (12-20); Aspartate Amino Transferase 20 U/L (5-31); Bilirubin Total 0.6 mg/dL (0.0-1.0); Blood Urea Nitrogen 15 mg/dL (9-16); Calcium 8.5 mg/dL (8.4-10.2); Carbon Dioxide 21 mmol/L (22-29); Chloride 109 mmol/L (96-108); Creatinine Clr Calc Pharmacy 114.9; Estimated Glomerular Filt Rate > 60; Glucose Random 105 mg/dL (60-115); Potassium 3.8 mmol/L (3.3-5.1); Sodium 136 mmol/L (135-145); Total Protein 6.8 g/dL (6.5-8.0)
--- NOTE | 2021-12-26 22:36 | ED.PREGNANCY ---
HPI - General Chief complaint: Vaginal Bleeding Stated complaint: vaginal bleeding Time Seen by Provider: 12/26/21 22:33 Source: patient Mode of arrival: ambulatory Limitations: no limitations History of Present Illness HPI Narrative: Patient with heavy periods since July. Patient has been on tranxamic acid. States she is passing clots. This period started 3 days ago, states she passed out with this period. Complaint: vaginal bleeding Severity: moderate Quality: Cramping Vaginal bleeding: heavy and clots Related Data Home Medications Medication Instructions Recorded Confirmed budesonide-formoterol HFA 160 2 puff INHALATION BID 08/24/21 mcg-4.5 mcg/actuation aerosol inhaler (Symbicort) ibuprofen 200 mg tablet 400 mg PO Q6H 08/24/21 loratadine 10 mg tablet 10 mg PO DAILY 08/24/21 Previous Rx's Medication Instructions Recorded tranexamic acid 650 mg tablet 1,300 mg PO TID 5 Days #30 tab 11/28/21 (Lysteda) Allergies Allergy/AdvReac Type Severity Reaction Status Date / Time No Known Allergies Allergy Verified 12/26/21 20:46 [No Known Allergies*] Review of Systems Constitutional: Constitutional: Reports no additional constitutional complaints Eyes: Eyes: Reports no additional eye complaints ENT: Denies dizziness Cardiovascular: Cardiovascular: Reports no additional cardiovascular complaints Respiratory: Respiratory: Reports as per HPI Gastrointestinal: Gastrointestinal: Reports no additional gastrointestinal complaints Genitourinary: Genitourinary: Reports no additional female genitourinary complaints Musculoskeletal: Musculoskeletal: Reports no additional musculoskeletal complaints Integumentary/Breasts: Skin/Breast: Denies rash Neurologic: Reports system reviewed and no additional complaints, except as documented, Denies dizziness and Denies Sensory deficit (Neuro) Psychiatric: Psychiatric: Denies anxiety PMFSH Past Medical History Medical History Anemia Asthma Surgical History Hx of cholecystectomy Family History Family History Paternal Grandmother Colon cancer History of breast cancer Maternal Grandmother Ovarian cancer Mother Varicose vein of leg Hx of blood clots Social History Social History Alcohol intake: current Patient Tobacco Use Status: Never used Tobacco Advance Directives: No Advance Directives Information Provided: No Patient : No Physical Exam Vital Signs: Vital Signs: Last Vital Signs Temp 98.1 F 12/27/21 00:13 Pulse 90 12/27/21 00:13 Resp 17 12/27/21 00:13 BP 96/65 12/27/21 00:13 Pulse Ox 100 12/27/21 00:13 BMI result Body Mass Index 39.3 Const: General: healthy appearing Nutritional Appearance: average body habitus Orientation/consciousness: oriented to person and patient oriented x3 Limitations: no limitations HEENT: Head: Yes normal to inspection Ears: external ears normal General nose exam: Normal external nose present Mouth: Normal oral and palatal mucosa present and oropharynx normal Throat: Yes posterior oropharynx normal Eyes: General: appearance normal, both eyes and all related structures Neck: Other: supple Neck: Yes normal visual inspection Chest: Chest palpation & inspection: normal inspection of the chest Resp: Auscultation: clear to auscultation bilaterally Cardio: Jugular venous distension: no JVD Rate: regular rate Rhythm: regular rhythm Heart sounds: S1 normal heart sound present and S2 normal heart sound present GI: Inspection: Yes normal to inspection Palpation (GI): Soft to palpation, nontender and No hepatosplenomegaly present Auscultation: normal bowel sounds : Other: small blood in vault, small clots removed from cervix, bleeding has stopped General: Yes no CVA tenderness Back/Spine/Pelvis: Back: no CVA tenderness Skin: General skin exam: no rashes or lesions noted Neuro: General: oriented to person and patient oriented x3 Cranial nerves: Yes CN's II-XII intact bilaterally Motor exam (neuro): 5/5 motor strength present throughout Sensory Exam: No Sensory deficit (Neuro) Extrem: General: Yes normal to inspection Psych: Appearance: grossly normal Course Reevaluation(s) Reevaluation #1: patient was orthostatic based on pulse when standing Time: 00:04 Reevaluation #2: No severe bleeding now, patient hydrated will have patient follow up with Dr. Dempsey Time: 00:50 MDM - OB/Uterine Contractions Lab Data Result diagrams: 12/26/21 20:55 12/26/21 20:55 Labs: Lab Results 04/25/22 04/25/22 04/26/22 Range/Units 20:55 20:55 00:04 WBC 14.0 H (4.8-10.8) X10*3/uL RBC 3.24 L (4.20-5.50) X10*6/uL Hgb 9.6 L (12.0-16.0) g/dl Hct 30.3 L (37.0-47.0) % MCV 93.5 (80.0-98.0) fL MCH 29.6 (27.0-33.0) pg MCHC 31.7 (31.0-35.0) g/dl RDW 19.3 H (11.0-16.0) % Plt Count 359 (160-400) X10*3/uL MPV 9.5 (9.4-12.3) fL Immature Gran % (Auto) 0.4 (0.0-0.4) % Neut % (Auto) 74.9 H (45-73) % Lymph % (Auto) 18.8 L (20-40) % [place] % (Auto) 4.4 (2-11) % Eos % (Auto) 0.6 (0-4) % Baso % (Auto) 0.9 (0-2) % Lymph # (Auto) 2.6 (1.2-4.9) X10*3/uL [place] # (Auto) 0.6 (0.1-1.2) X10*3/uL Eos # (Auto) 0.1 (0.0-0.4) X10*3/uL Baso # (Auto) 0.1 (0.0-0.2) X10*3/uL Abs Immat Gran (auto) 0.06 H (0.00-0.03) X10*3/uL Absolute Neuts (auto) 10.5 H (2.0-8.3) x10*3/uL Absolute Nucleated RBC 0.000 (0.0-0.012) X10*3/uL Nucleated RBC % (auto) 0.0 (0.0-0.2) /100WBC Sodium 136 (135-145) mmol/L Potassium 3.8 (3.3-5.1) mmol/L Chloride 109 H (96-108) mmol/L Carbon Dioxide 21 L (22-29) mmol/L Anion Gap 10 L (12-20) BUN 15 (9-16) mg/dL Creatinine 0.78 (0.5-1.4) mg/dL Estim Creat Clear Calc 114.9 Estimated GFR > 60 Random Glucose 105 (60-115) mg/dL Calcium 8.5 D (8.4-10.2) mg/dL Total Bilirubin 0.6 (0.0-1.0) mg/dL AST 20 (5-31) U/L ALT 17 (0-31) U/L Alkaline Phosphatase 62 (39-117) U/L Total Protein 6.8 (6.5-8.0) g/dL Albumin 4.2 (3.5-5.0) g/dL Urine Test NEGATIVE (NEGATIVE) ECG Data Attestation: I personally reviewed and interpreted this ECG as follows: Interpretation: sinus 100, no st or twave changes Discharge Plan Discharge Clinical Impression: Abnormal uterine bleeding (AUB), Menometrorrhagia Patient Disposition: Home, Self-Care Instructions: Dysfunctional Uterine Bleeding (ED), Menorrhagia (ED) Prescriptions: No Action loratadine 10 mg tablet 10 mg PO DAILY 0RF budesonide-formoterol [Symbicort] 160-4.5 mcg/actuation HFA aerosol inhaler 2 puff inhalation BID 0RF ibuprofen 200 mg tablet 400 mg PO Q6H 0RF tranexamic acid [Lysteda] 650 mg tablet 1,300 mg PO TID 5 Days Qty: 30 2RF Referrals: Vipin Dempsey MD [Physician] - 2 days (call tomorrow for follow up)
--- NOTE | 2021-12-26 22:40 | ECG_ITS ---
Test Reason : CHEST PAIN Blood Pressure : / mmHG Vent. Rate : 098 BPM Atrial Rate : 098 BPM P-R Int : 140 ms QRS Dur : 074 ms QT Int : 328 ms P-R-T Axes : 058 047 036 degrees QTc Int : 418 ms Normal sinus rhythm Normal ECG When compared with ECG of 20-NOV-2018 20:30, No significant change was found Referred By: Aakash Burnham Electronically Signed By:TINO CRUMP
[2021-12-26] MEDS: 0.9 % Sodium Chloride 1,000 ML 999 ML IVCONT (23:14)
[2021-12-27 00:13] VITALS: BP 96/65; PULSE 90; RESP 17; TEMP 36.7; O2SAT 100
[2021-12-27 00:18] LABS: UPreg QC Valid YES; Urine Pregnancy NEGATIVE (NEGATIVE)
== END 2021-12-27 00:56 | disposition home or self-care (01) ==
PROVIDERS: Emergency Provider Emergency Medicine
DX: N92.1 Excessive and frequent menstruation with irregular cycle (principal); N93.9 Abnormal uterine and vaginal bleeding, unspecified; R25.2 Cramp and spasm; N93.8 Other specified abnormal uterine and vaginal bleeding; R07.9 Chest pain, unspecified; Z79.899 Other long term (current) drug therapy
CPT/HCPCS: 36415; 80053; 81025; 85025; 93005; 96360; 99283; 99284

== ENCOUNTER → 2021-12-29 13:20 | Outpatient (BNVA) | payer BC, SELFPAY | PROVIDERS: PCP Internal Medicine; Visit Provider Obstetrics & Gynecology | DX: Z13.89 Encounter for screening for other disorder (principal) ==

== ENCOUNTER 2022-01-19 20:43 | Observation (INO) | payer BC, SELFPAY ==
--- NOTE | 2022-01-19 | ECG_ITS ---
Test Reason : SYNCOPE Blood Pressure : / mmHG Vent. Rate : 107 BPM Atrial Rate : 107 BPM P-R Int : 138 ms QRS Dur : 074 ms QT Int : 318 ms P-R-T Axes : 052 050 030 degrees QTc Int : 424 ms Sinus tachycardia Otherwise normal ECG When compared with ECG of 26-DEC-2021 22:45, No significant change was found Referred By: Generic ED Physician Electronically Signed By:TINO CRUMP
[2022-01-19 21:31] VITALS: BP 120/86; PULSE 107; RESP 18; TEMP 36.9; O2SAT 99; BMI 38.0
[2022-01-19 22:14] LABS: MANUAL DIFF FLAG NO
[2022-01-19 22:15] LABS: Basophils Absolute Auto 0.1 X10*3/uL (0.0-0.2); Basophils Percent Auto 0.7 % (0-2); Eosinophils Absolute Auto 0.1 X10*3/uL (0.0-0.4); Eosinophils Percent Auto 0.5 % (0-4); Hematocrit 34.9 % (37.0-47.0); Hemoglobin 11.2 g/dl (12.0-16.0); Imm Gran Abs Auto 0.06 X10*3/uL (0.00-0.03); Imm Gran Pct Auto 0.3 % (0.0-0.4); Lymphocytes Absolute Auto 1.5 X10*3/uL (1.2-4.9); Lymphocytes Percent Auto 8.5 % (20-40); Mean Corpuscular HGB Conc 32.1 g/dl (31.0-35.0); Mean Corpuscular Volume 93.6 fL (80.0-98.0); Monocytes Absolute Auto 0.9 X10*3/uL (0.1-1.2); Monocytes Percent Auto 5.3 % (2-11); Neutrophils Percent Auto 84.7 % (45-73); Platelet Count 394 X10*3/uL (160-400); Red Blood Count 3.73 X10*6/uL (4.20-5.50); Red Cell Distribution Width 15.1 % (11.0-16.0); White Blood Count 17.7 X10*3/uL (4.8-10.8)
[2022-01-19 22:29] LABS: Alanine Aminotransferase 17 U/L (0-31); Albumin Level 4.5 g/dL (3.5-5.0); Alkaline Phosphatase 80 U/L (39-117); Anion Gap 12 (12-20); Aspartate Amino Transferase 14 U/L (5-31); Bilirubin Total 0.7 mg/dL (0.0-1.0); Blood Urea Nitrogen 16 mg/dL (9-16); Calcium 9.8 mg/dL (8.4-10.2); Carbon Dioxide 19 mmol/L (22-29); Chloride 109 mmol/L (96-108); Creatinine Clr Calc Pharmacy 108.6; Estimated Glomerular Filt Rate > 60; Glucose Random 107 mg/dL (60-115); Potassium 4.3 mmol/L (3.3-5.1); Sodium 136 mmol/L (135-145); Total Protein 7.4 g/dL (6.5-8.0)
[2022-01-19 22:51] VITALS: BP 105/65; PULSE 82; RESP 16; TEMP 36.8; O2SAT 99
--- NOTE | 2022-01-19 23:23 | ED.FEMALEGU ---
HPI - Female Genitourinary General Chief complaint: Vaginal Bleeding Stated complaint: heavy menstrual bleeding(since 01/18), fainting Time Seen by Provider: 01/19/22 22:58 Source: patient and family (Significant other) Mode of arrival: ambulatory Limitations: no limitations History of Present Illness HPI Narrative: 31-year-old female came in for complaining of abnormal heavy vaginal bleeding for the last 2 days. 31-year-old female who also declined any chance of being came in for vaginal bleeding for 2 days, patient claimed that she use 20 pads a day and passing blood clots, patient with history of anemia and required iron infusion, patient normally follow up with Dr. Dempsey she is known to have fibroid uterus and scheduled to have fibroid removal at [facility] in the next few weeks. Also patient been having dizziness and lightheadedness, but no syncope, no fever, no chills. Related Data Home Medications Medication Instructions Recorded Confirmed budesonide-formoterol HFA 160 2 puff INHALATION BID 08/24/21 mcg-4.5 mcg/actuation aerosol inhaler (Symbicort) ibuprofen 200 mg tablet 400 mg PO Q6H 08/24/21 loratadine 10 mg tablet 10 mg PO DAILY 08/24/21 Previous Rx's Medication Instructions Recorded tranexamic acid 650 mg tablet 1,300 mg PO TID 5 Days #30 tab 11/28/21 (Lysteda) Allergies Allergy/AdvReac Type Severity Reaction Status Date / Time No Known Allergies Allergy Verified 12/26/21 20:46 [No Known Allergies*] Review of Systems Review of Systems: All other systems are reviewed and are negative Constitutional: Reports as per HPI and Reports no additional constitutional complaints Eyes: Reports as per HPI and Reports no additional eye complaints Reports system reviewed and no additional complaints, except as documented Cardiovascular: Reports as per HPI and Reports no additional cardiovascular complaints Respiratory: Reports as per HPI and Reports no additional respiratory complaints Gastrointestinal: Reports as per HPI and Reports no additional gastrointestinal complaints Genitourinary: Reports no additional female genitourinary complaints Musculoskeletal: Reports no additional musculoskeletal complaints Skin/Breast: Reports system reviewed and no additional complaints, except as docu Psychiatric: Reports no additional psychiatric complaints Endocrine: Reports no additional endocrine complaints Hematologic/Lymphatic: Reports no additional hematologic/lymphatic complaints Allergic/Immunologic: Reports no additional allergic/immunologic complaints Reports system reviewed and no additional complaints, except as documented and Reports Abnormal speech present [facility] Past Medical History Medical History Anemia Asthma Surgical History Hx of cholecystectomy Family History Family History Paternal Grandmother Colon cancer History of breast cancer Maternal Grandmother Ovarian cancer Mother Varicose vein of leg Hx of blood clots Social History Social History Alcohol intake: current Patient Tobacco Use Status: Never used Tobacco Advance Directives: No Advance Directives Information Provided: Yes Physical Exam Vital Signs: Vital Signs: Last Vital Signs Temp 97.9 F 01/20/22 04:00 Pulse 91 01/20/22 04:00 Resp 16 01/20/22 04:00 BP 104/73 01/20/22 04:00 Pulse Ox 100 01/20/22 04:00 BMI result Body Mass Index 38.0 Vital signs have been reviewed as appeared to be correct. Blood pressure normal. Heart rate normal. Respiration rate normal. Temperature normal. Oxygen saturation normal. Appearance: Alert. Oriented X3. No acute distress. Head: Normal external exam. Normocephalic. Atraumatic. No [place] signs noted. No raccoon eyes noted Eyes: PERRLA. EOMI. Conjunctiva and sclera normal. Eyelids normal. ENT: TM's Normal. Pharynx normal. Uvula midline. Moist mucous membranes. No trismus noted. No drooling noted. No muffled voice noted. Neck: Normal inspection. Neck supple. FROM. No adenopathy. Thyroid Normal. No meningeal signs. No neck mass noted. CVS: Normal heart rate and rhythm. Heart sound normal. No murmurs noted. Pulses normal throughout. Respiratory: No respiratory distress. Painless inspiration. Breath sounds normal. No wheezes/rales/rhonchi noted. Chest nontender. No accessory muscle usage noted or decreased air movement noted. Abdomen: Soft and nontender. Bowel sounds normal in all 4 quadrants. No distention noted. No organomegaly noted. No visible injury noted. Pelvic exam: In the presence of female investigator operator in room, speculum exam showed blood clots blood in the vault coming from the os. Back: No CVA tenderness. Full range of motion noted. Skin: Skin warm and dry. Normal skin color. Normal skin turgor. No rashes/lesions/lacerations noted. Extremities: No lower extremity edema. Extremities exhibit normal range of motion. Extremities nontender. Neuro: Oriented X 3. Cranial nerve exam: II-XII are grossly intact No motor deficit. No sensory deficit. Reflexes normal. Course Reevaluation(s) Reevaluation #1: Assessment and plan. 31-year-old female with severe menorrhagia, patient is symptomatic with orthostatic dizziness and near syncope, patient dropped 1 unit of hematocrit while she is in the emergency department, appear pale, pelvic exam showed significant amount of blood in the vault. Dr. Demspey was consulted he is at the bedside now getting the patient ready to emergency D and C in the OR. Time: 04:40 [facility] - Female Genitourinary Lab Data Attestation: I reviewed the patient's lab results. Result diagrams: 01/20/22 02:39 01/19/22 22:10 Labs: Lab Results 01/19/22 01/19/22 01/19/22 Range/Units 22:10 22:10 23:38 WBC 17.7 H (4.8-10.8) X10*3/uL RBC 3.73 L (4.20-5.50) X10*6/uL Hgb 11.2 L (12.0-16.0) g/dl Hct 34.9 L (37.0-47.0) % MCV 93.6 (80.0-98.0) fL MCH 30.0 (27.0-33.0) pg MCHC 32.1 (31.0-35.0) g/dl RDW 15.1 (11.0-16.0) % Plt Count 394 (160-400) X10*3/uL MPV 9.0 L (9.4-12.3) fL Immature Gran % (Auto) 0.3 (0.0-0.4) % Neut % (Auto) 84.7 H (45-73) % Lymph % (Auto) 8.5 L (20-40) % [place] % (Auto) 5.3 (2-11) % Eos % (Auto) 0.5 (0-4) % Baso % (Auto) 0.7 (0-2) % Lymph # (Auto) 1.5 (1.2-4.9) X10*3/uL [place] # (Auto) 0.9 (0.1-1.2) X10*3/uL Eos # (Auto) 0.1 (0.0-0.4) X10*3/uL Baso # (Auto) 0.1 (0.0-0.2) X10*3/uL Abs Immat Gran (auto) 0.06 H (0.00-0.03) X10*3/uL Absolute Neuts (auto) 15.0 H (2.0-8.3) x10*3/uL Absolute Nucleated RBC 0.000 (0.0-0.012) X10*3/uL Nucleated RBC % (auto) 0.0 (0.0-0.2) /100WBC Sodium 136 (135-145) mmol/L Potassium 4.3 (3.3-5.1) mmol/L Chloride 109 H (96-108) mmol/L Carbon Dioxide 19 L (22-29) mmol/L Anion Gap 12 (12-20) BUN 16 (9-16) mg/dL Creatinine 0.81 (0.5-1.4) mg/dL Estim Creat Clear Calc 108.6 Estimated GFR > 60 Random Glucose 107 (60-115) mg/dL Calcium 9.8 D (8.4-10.2) mg/dL Total Bilirubin 0.7 (0.0-1.0) mg/dL AST 14 (5-31) U/L ALT 17 (0-31) U/L Alkaline Phosphatase 80 D (39-117) U/L Total Protein 7.4 (6.5-8.0) g/dL Albumin 4.5 (3.5-5.0) g/dL Urine Color YELLOW Urine Appearance HAZY Urine pH 6.0 (5.0-8.0) Ur Specific [place] >= 1.030 H (1.005-1.025) Urine Protein NEG (NEG-TRACE) MG/DL Urine Glucose (UA) NEG (NEG) MG/DL Urine Ketones NEG (NEG) MG/DL Urine Blood 3+ H (NEG) Urine Nitrite NEG (NEG) Ur Leukocyte Esterase NEG (NEG) Urine RBC 30-49 H (0) /HPF Urine WBC 0-2 (0-4) /HPF Ur Squamous Epith Cells TRACE /LPF Urine Bacteria NONE /LPF Urine Mucus 1+ /LPF Urine Test (NEGATIVE) 01/19/22 01/20/22 Range/Units 23:38 02:39 WBC 12.7 H (4.8-10.8) X10*3/uL RBC 3.30 L (4.20-5.50) X10*6/uL Hgb 9.9 L (12.0-16.0) g/dl Hct 30.7 L (37.0-47.0) % MCV 93.0 (80.0-98.0) fL MCH 30.0 (27.0-33.0) pg MCHC 32.2 (31.0-35.0) g/dl RDW 15.3 (11.0-16.0) % Plt Count 371 (160-400) X10*3/uL MPV 9.0 L (9.4-12.3) fL Immature Gran % (Auto) 0.3 (0.0-0.4) % Neut % (Auto) 76.9 H (45-73) % Lymph % (Auto) 17.2 L (20-40) % [place] % (Auto) 4.2 (2-11) % Eos % (Auto) 0.8 (0-4) % Baso % (Auto) 0.6 (0-2) % Lymph # (Auto) 2.2 (1.2-4.9) X10*3/uL [place] # (Auto) 0.5 (0.1-1.2) X10*3/uL Eos # (Auto) 0.1 (0.0-0.4) X10*3/uL Baso # (Auto) 0.1 (0.0-0.2) X10*3/uL Abs Immat Gran (auto) 0.04 H (0.00-0.03) X10*3/uL Absolute Neuts (auto) 9.8 H (2.0-8.3) x10*3/uL Absolute Nucleated RBC 0.000 (0.0-0.012) X10*3/uL Nucleated RBC % (auto) 0.0 (0.0-0.2) /100WBC Sodium (135-145) mmol/L Potassium (3.3-5.1) mmol/L Chloride (96-108) mmol/L Carbon Dioxide (22-29) mmol/L Anion Gap (12-20) BUN (9-16) mg/dL Creatinine (0.5-1.4) mg/dL Estim Creat Clear Calc Estimated GFR Random Glucose (60-115) mg/dL Calcium (8.4-10.2) mg/dL Total Bilirubin (0.0-1.0) mg/dL AST (5-31) U/L ALT (0-31) U/L Alkaline Phosphatase (39-117) U/L Total Protein (6.5-8.0) g/dL Albumin (3.5-5.0) g/dL Urine Color Urine Appearance Urine pH (5.0-8.0) Ur Specific [place] (1.005-1.025) Urine Protein (NEG-TRACE) MG/DL Urine Glucose (UA) (NEG) MG/DL Urine Ketones (NEG) MG/DL Urine Blood (NEG) Urine Nitrite (NEG) Ur Leukocyte Esterase (NEG) Urine RBC (0) /HPF Urine WBC (0-4) /HPF Ur Squamous Epith Cells /LPF Urine Bacteria /LPF Urine Mucus /LPF Urine Test NEGATIVE (NEGATIVE) Discharge Plan Discharge Clinical Impression: Anemia, Myoma, Abnormal uterine bleeding (AUB) Patient Disposition: Admitted As Inpatient Prescriptions: No Action loratadine 10 mg tablet 10 mg PO DAILY 0RF budesonide-formoterol [Symbicort] 160-4.5 mcg/actuation HFA aerosol inhaler 2 puff inhalation BID 0RF ibuprofen 200 mg tablet 400 mg PO Q6H 0RF tranexamic acid [Lysteda] 650 mg tablet 1,300 mg PO TID 5 Days Qty: 30 2RF
[2022-01-19 23:29] VITALS: BP 102/69; PULSE 75
[2022-01-19 23:30] VITALS: BP 104/76; PULSE 88
[2022-01-19 23:31] VITALS: BP 95/77; PULSE 96
[2022-01-19] MEDS: 0.9 % Sodium Chloride 1,000 ML 999 ML IV (23:38)
[2022-01-19 23:49] LABS: Appearance Urine HAZY; Color Urine YELLOW; Glucose Urine UA NEG (NEG); Leukocyte Esterase Urine NEG (NEG); Nitrite Urine NEG (NEG); Specific Gravity - Urine >= 1.030 (1.005-1.025); UACC Culture Trigger NO; Urine Blood 3+ (NEG); Urine Ketones NEG (NEG); Urine Protein NEG (NEG-TRACE)
[2022-01-19 23:51] LABS: UPreg QC Valid YES; Urine Pregnancy NEGATIVE (NEGATIVE)
[2022-01-20] VITALS (14 sets, daily range): BP systolic 91–127; BP diastolic 65–90; PULSE 68–91; RESP 14–18; TEMP 36–37.4; O2SAT 96–100
[2022-01-20 00:07] LABS: Mucus Urine 1+ /LPF; RBC Urine 30-49 /HPF (0); Squamous Epithelial Cell Urine TRACE /LPF; WBC Urine 0-2 /HPF (0-4)
[2022-01-20] MEDS: 0.9 % Sodium Chloride 1,000 ML 999 ML IV (02:00)
[2022-01-20 02:45] LABS: Basophils Absolute Auto 0.1 X10*3/uL (0.0-0.2); Basophils Percent Auto 0.6 % (0-2); Eosinophils Absolute Auto 0.1 X10*3/uL (0.0-0.4); Eosinophils Percent Auto 0.8 % (0-4); Hematocrit 30.7 % (37.0-47.0); Hemoglobin 9.9 g/dl (12.0-16.0); Imm Gran Abs Auto 0.04 X10*3/uL (0.00-0.03); Imm Gran Pct Auto 0.3 % (0.0-0.4); Lymphocytes Absolute Auto 2.2 X10*3/uL (1.2-4.9); Lymphocytes Percent Auto 17.2 % (20-40); MANUAL DIFF FLAG NO; Mean Corpuscular HGB Conc 32.2 g/dl (31.0-35.0); Monocytes Absolute Auto 0.5 X10*3/uL (0.1-1.2); Monocytes Percent Auto 4.2 % (2-11); Neutrophils Absolute Auto 9.8 x10*3/uL (2.0-8.3); Neutrophils Percent Auto 76.9 % (45-73); Platelet Count 371 X10*3/uL (160-400); Red Cell Distribution Width 15.3 % (11.0-16.0); White Blood Count 12.7 X10*3/uL (4.8-10.8)
--- NOTE | 2022-01-20 04:31 | P.CONOB_ITS ---
PRESENTATION MANAGER - CN: HPI Data of Consult Consult date: 01/20/22 Primary Care Provider: Unknown Physician Consult Narrative Narrative: I was consulted on Sylvie Vidales who is a 31 year old female who presented emergency room with heavy vaginal bleeding that started yesterday associated with passage of blood clots and pelvic cramping. The patient passed out at home and was brought to the emergency. The patient has history of 3 myomas, has a family history of DVT with her mother and was told not to be on estrogen treatm ent although she never had workup done for thrombogenic disorders, therefore she was treated with norethindrone, Mirena IUD and Lysteda to no avail. Ultrasound done in September of 2021 showed the following: The uterus is anteverted and retroflexed and measures 11.3 x 5.2 x 6 cm in dimension. There is an IUD in the uterus in satisfactory position. Endometrial thickness measures 1.2 cm. There are 3 uterine fibroids.There is a 4.3 x 4 x 4.3 cm central fibroid in the body of the uterus that abut the endometrium suggestive of a subcutaneous fibroid. There is a 2.2 x 2.1 x 2.1 cm anterior uterine body intramural fibroid. There is a 1.6 x 1.7 x 1.8 cm right intramural body fibroid. The right ovary is enlarged and measures 4.1 x 4.3 x 4.1 cm, volume 38 mL. There is a 4 x 3 x 4 cm simple cyst. The left ovary is enlarged and measures 7.8 x3.5 x 4.3 cm, volume 61 mL. There is a 5.4 x 2.9 x 3 cm simple left ovarian cyst. There is no fluid in the pelvis. The patient was counseled about different options of treatment and since she is interested in future fertility and minimally invasive surgery, the patient was referred to [facility] for further management, her appointment is scheduled in 4 weeks. In the emergency room initial H&H on arrival was 11.2/34.9 repeat after 4 hours dropped to 9.9/30.7. 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 - Review of Systems Review of Systems ROS Unobtainable: All systems reviewed & are unremarkable except as noted in HPI and below Cardiovascular: Denies Palpatations, Loss of consciousness or Chest pain Respiratory: Denies Cough, Wheezing or Shortness of breath Musculoskeletal: Denies Low back pain Gastrointestinal: Denies Heartburn, Constipation, Diarrhea, Nausea or Vomiting Genitourinary: Denies Pain with urination, Burning with urination or Urinary frequency Neurological: Denies Migranes Psychological: Denies Depression OB PMFSH Past Medical History Medical History Anemia Asthma Family History Family History Paternal Grandmother Colon cancer History of breast cancer Maternal Grandmother Ovarian cancer Mother Varicose vein of leg Hx of blood clots Surgical History Surgical History Hx of cholecystectomy Social History Social History Alcohol intake: current Patient Tobacco Use Status: Never used Tobacco Advance Directives: No Advance Directives Information Provided: Yes Meds Allergies Allergy/AdvReac Type Severity Reaction Status Date / Time No Known Allergies Allergy Verified 12/26/21 20:46 [No Known Allergies*] Home Medications Medication Instructions Recorded Confirmed Last Taken Type budesonide-formoterol HFA 160 2 puff INHALATION BID 08/24/21 Unknown History mcg-4.5 mcg/actuation aerosol inhaler (Symbicort) ibuprofen 200 mg tablet 400 mg PO Q6H 08/24/21 Unknown History loratadine 10 mg tablet 10 mg PO DAILY 08/24/21 Unknown History PRESENTATION MANAGER Physical Exam Vitals Vital signs: Temp Pulse Resp BP Pulse Ox 97.9 F 79 16 91/67 99 01/20/22 01:55 01/20/22 01:55 01/20/22 01:55 01/20/22 01:55 01/20/22 01:55 BMI result Body Mass Index 38.0 Constitutional General Appearance: Healthy appearing, Well-nourished and Well-developed Psychiatric Mood and Affect: active and alert, normal mood and normal affect Skin Appearance: No rashes and No lesions Lungs Respiratory Effort: No intercostal retractions Auscultation: Clear to auscultation Cardiovascular Auscultation: RRR Abdomen Auscultation/Inspection/Palpation: Normal bowel sounds, Soft, Non-distended and No tenderness Female Genitalia (Pelvic) Vulva: No lesions Lesion Location: [place] Vagina: Nontender Cervix: Grossly normal Uterus: Fibroids Adnexa/Parametria: Adnexal Tenderness: None, Adnexal Mass: None, Parametrial Tenderness: None and Parametrial Mass: None Additional Comments: Blood clots per vagina, continuous trickle of blood oot of the cervix PRESENTATION MANAGER - Results Labs CBC & Chem 7: 01/20/22 02:39 01/19/22 22:10 Labs: Short CBC 01/19/22 01/20/22 Range/Units 22:10 02:39 WBC 17.7 H 12.7 H (4.8-10.8) X10*3/uL Hgb 11.2 L 9.9 L (12.0-16.0) g/dl Hct 34.9 L 30.7 L (37.0-47.0) % Plt Count 394 371 (160-400) X10*3/uL BMP 01/19/22 22:10 Sodium 136 Potassium 4.3 Chloride 109 H Carbon Dioxide 19 L BUN 16 Creatinine 0.81 Calcium 9.8 D Liver Function 01/19/22 Range/Units 22:10 Total Bilirubin 0.7 (0.0-1.0) mg/dL AST 14 (5-31) U/L ALT 17 (0-31) U/L Alkaline Phosphatase 80 D (39-117) U/L Albumin 4.5 (3.5-5.0) g/dL Urine 01/19/22 01/19/22 Range/Units 23:38 23:38 Urine Color YELLOW Urine Appearance HAZY Urine pH 6.0 (5.0-8.0) Ur Specific [place] >= 1.030 H (1.005-1.025) Urine Protein NEG (NEG-TRACE) MG/DL Urine Glucose (UA) NEG (NEG) MG/DL Urine Test NEGATIVE (NEGATIVE) Assessment and Plan (1) Abnormal uterine bleeding (AUB): Status: Acute Recommended hysteroscopy D&C possible submucosal myomectomy, possible abdominal myomectomy. Discussed with the patient the procedure, all benefits and risks including but not limited to inability to complete the procedure , uterine perforation, bleeding, infection, possible need for blood transfusion with all its risk ( HIV,syphilis, Hepatitis, anaphylaxis shock, others..), injury to bladder, rectum, possible need for laparoscopy/laparotomy or abdominal myomectomy or hysterectomy; In addition, discussed with the patient the alternatives options of treatment including not limited to minimally invasive myomectomy (which is the patient's preference, but not available at [facility]), IV Premarin, IV TXA. All questions answered, the patient verbalized understanding agreed with the plan and signed the consent. (2) Anemia: Status: Acute Plan Transfusion with 1 unit of PRB's. Discussed with the patient the risks of blood transfusion including, but are not limited to: Infection or irritation where the needle is placed. Temporary reaction such as a fever, chills, or skin rashes. Other rare but more serious complications may occur such as allergic reactions, heart failure due to fluid overload, acute pulmonary edema (fluid leaking into the lungs), shock, or . Transfusions of blood or blood products involve a small risk of transmission of diseases such as Hepatitis B (~1 in 1,000,000), Hepatitis C (~1 in 1,200,000), and HIV/AIDS (~1 in 1,500,000), in addition to a small risk of bacterial infection when blood products are transfused. The patient agreed with the plan and signed the consent.
--- NOTE | 2022-01-20 05:07 | HO.ANESPROP2 ---
[facility] Active Problems Active Problems: All Active Problems (Updated 12/29/21 @ 14:29 by Vipin Dempsey MD) Myoma (Acute) Anemia (Acute) Family history of thrombosis (Acute) Abnormal uterine bleeding (AUB) (Acute) Past Medical History Medical History Anemia Asthma Family History Family History Paternal Grandmother Colon cancer History of breast cancer Maternal Grandmother Ovarian cancer Mother Varicose vein of leg Hx of blood clots Family history of problems with anesthesia: No Surgical History Surgical History Hx of cholecystectomy History of Problems with Anesthesia: No Social History Social History Alcohol intake: current Patient Tobacco Use Status: Never used Tobacco Advance Directives: No Advance Directives Information Provided: Yes Meds Allergies Allergy/AdvReac Type Severity Reaction Status Date / Time No Known Allergies Allergy Verified 12/26/21 20:46 [No Known Allergies*] Home Medications Medication Instructions Recorded Confirmed Last Taken Type budesonide-formoterol HFA 160 2 puff INHALATION BID 08/24/21 Unknown History mcg-4.5 mcg/actuation aerosol inhaler (Symbicort) ibuprofen 200 mg tablet 400 mg PO Q6H 08/24/21 Unknown History loratadine 10 mg tablet 10 mg PO DAILY 08/24/21 Unknown History Exam Exam Date and Time: January 20, 2022 0507 Height,Weight and Vital Signs: Height 5 ft 2 in Weight 94.347 kg Last Vital Signs Temp 97.9 F 01/20/22 04:00 Pulse 91 01/20/22 04:00 Resp 16 01/20/22 04:00 BP 104/73 01/20/22 04:00 Pulse Ox 100 01/20/22 04:00 Pertinent Lab Results Pertinent Lab Results: Laboratory Tests 01/19/22 01/19/22 01/19/22 22:10 22:10 23:38 WBC 17.7 H RBC 3.73 L Hgb 11.2 L Hct 34.9 L MCV 93.6 MCH 30.0 MCHC 32.1 RDW 15.1 Plt Count 394 MPV 9.0 L Immature Gran % (Auto) 0.3 Neut % (Auto) 84.7 H Lymph % (Auto) 8.5 L [place] % (Auto) 5.3 Eos % (Auto) 0.5 Baso % (Auto) 0.7 Lymph # (Auto) 1.5 [place] # (Auto) 0.9 Eos # (Auto) 0.1 Baso # (Auto) 0.1 Abs Immat Gran (auto) 0.06 H Absolute Neuts (auto) 15.0 H Absolute Nucleated RBC 0.000 Nucleated RBC % (auto) 0.0 Sodium 136 Potassium 4.3 Chloride 109 H Carbon Dioxide 19 L Anion Gap 12 BUN 16 Creatinine 0.81 Estim Creat Clear Calc 108.6 Estimated GFR > 60 Random Glucose 107 Calcium 9.8 D Total Bilirubin 0.7 AST 14 ALT 17 Alkaline Phosphatase 80 D Total Protein 7.4 Albumin 4.5 Urine Color YELLOW Urine Appearance HAZY Urine pH 6.0 Ur Specific [place] >= 1.030 H Urine Protein NEG Urine Glucose (UA) NEG Urine Ketones NEG Urine Blood 3+ H Urine Nitrite NEG Ur Leukocyte Esterase NEG Urine RBC 30-49 H Urine WBC 0-2 Ur Squamous Epith Cells TRACE Urine Bacteria NONE Urine Mucus 1+ Urine Test 01/19/22 01/20/22 23:38 02:39 WBC 12.7 H RBC 3.30 L Hgb 9.9 L Hct 30.7 L MCV 93.0 MCH 30.0 MCHC 32.2 RDW 15.3 Plt Count 371 MPV 9.0 L Immature Gran % (Auto) 0.3 Neut % (Auto) 76.9 H Lymph % (Auto) 17.2 L [place] % (Auto) 4.2 Eos % (Auto) 0.8 Baso % (Auto) 0.6 Lymph # (Auto) 2.2 [place] # (Auto) 0.5 Eos # (Auto) 0.1 Baso # (Auto) 0.1 Abs Immat Gran (auto) 0.04 H Absolute Neuts (auto) 9.8 H Absolute Nucleated RBC 0.000 Nucleated RBC % (auto) 0.0 Sodium Potassium Chloride Carbon Dioxide Anion Gap BUN Creatinine Estim Creat Clear Calc Estimated GFR Random Glucose Calcium Total Bilirubin AST ALT Alkaline Phosphatase Total Protein Albumin Urine Color Urine Appearance Urine pH Ur Specific [place] Urine Protein Urine Glucose (UA) Urine Ketones Urine Blood Urine Nitrite Ur Leukocyte Esterase Urine RBC Urine WBC Ur Squamous Epith Cells Urine Bacteria Urine Mucus Urine Test NEGATIVE Airway Mallampati Class: II TM Dist: >3cm Neck ROM: Full Assessment and Plan Assessment Anesthesia Assessment: Anesthesia Plan Discussed and Chart Reviewed Final Anesthetic Review Family History of Problems with Anesthesia: No History of Problems with Anesthesia: No NPO: Yes ASA Class: II and Emergency Final Preanesthetic Review: No Changes in Pt Med Stat, Meds/Allgs Chart Reviewed, Consent Obtained/Reviewed and Anes Risks/Benef Reviewed Patient Risk: Intermediate Procedure Risk: Intermediate Anesthetic Plan Anesthetic Plan: GA Disposition: Standard PACU
--- NOTE | 2022-01-20 05:21 | PC.NURSE ---
3:[address] Garnica by bedside with pharmacy technician infusion doing a pelvic exam, large amount of blood notice with large clots 5:23 AM report given to ANGEL Hamilton at OR
--- NOTE | 2022-01-20 06:54 | P.BOP_ITS ---
Brief Operative Note Date of Service: 01/20/22 Pre-op diagnosis: abnormal uterine bleeding, myoma and anemia Post-op diagnosis: same ( same plus normal uterine cavity) Procedure: Hysteroscopy D&C Surgeon: Vipin Dempsey MD Anesthesia: MAC Was an Supervisor Parking Lot used for this Procedure?: No Estimated blood loss (mL): 0 Pathology: other (Endometrial Scrapping.) Condition: stable Disposition: PACU
--- NOTE | 2022-01-20 06:56 | P.OP_ITS ---
Operative Note Operative Note Date of Service: 01/20/22 Narrative: Preop Diagnosis: abnormal uterine bleeding, anemia and myomas Operation: Diagnostic Hysteroscopy, Dilataion & Curettage Post Op Diagnosis: Normal endometrial cavity QBL: 200 cc Anesthesia: MAC Surgeon: Vipin Dempsey MD Third Shift Lieutenant: None Complication: None Pathology: Endometrial Scrapings Complication: None Pathology: Endometrial Scrapings Procedure: The patient was put in the dorsal lithotomy position, scrubbed, and d raped in the usual manner. A sterile speculum was inserted in the patient's vagina. large blood clots evacuated from vaginal cavity, there was evidence of active vaginal bleeding coming out of the cervix. The anterior lip of the cervix was grasped with a single tooth tenaculum. The cervix was already dilated from the heavy bleeding, then the scope was inserted in the patient's uterus. Inspection revealed Normal endometrial cavity. The Myosure Reach device was used; sharp curettings was carried on with moderate amount of tissues retrieved. At the end of the procedure, all instruments were taken out of the patient uterine and vaginal cavity. Inspection for around 10 minutes with a speculum in the vaginal cavity and revealed no evidence of any vaginal bleeding. The single tooth tenaculum was removed and homeostasis was assured using pressure. The patient tolerated the procedure well and was transferred to the PACU in a stable condition.
[2022-01-20] MEDS: medroxyPROGESTERone Acetate 5 MG TABLET 10 MG PO (07:52)
[2022-01-20] MEDS: fentaNYL citrate/PF 100 MCG/2 ML VIAL 50 MCG IVPUSH (07:53)
[2022-01-20] MEDS: oxyCODONE HCl Immed Release 5 MG TABLET PO (07:53)
[2022-01-20] MEDS: ondansetron HCL 4 MG/2 ML VIAL IVPUSH (07:58)
[2022-01-20] MEDS: Lactated Ringers 1,000 ML 125 ML IVCONT (08:49)
[2022-01-20 09:06] LABS: CT PCR NOT DETECTED (Not Detect.); NG PCR NOT DETECTED (Not Detect.)
--- NOTE | 2022-01-20 10:16 | PHA.MEDREC ---
MED REC COMPLETE, NO ISSUES Pharmacy Consult ? Medication Reconciliation Pharmacy has completed the medication reconciliation.
[2022-01-20] MEDS: Metoclopramide HCl 10 MG/2 ML VIAL IVPUSH (14:08)
[2022-01-20 14:13] LABS: Hematocrit 29.4 % (37.0-47.0); Hemoglobin 9.5 g/dl (12.0-16.0); Mean Corpuscular HGB Conc 32.3 g/dl (31.0-35.0); Mean Corpuscular Hemoglobin 30.2 pg (27.0-33.0); Mean Corpuscular Volume 93.3 fL (80.0-98.0); Mean Platelet Volume 9.1 fL (9.4-12.3); Platelet Count 292 X10*3/uL (160-400); Red Blood Count 3.15 X10*6/uL (4.20-5.50); Red Cell Distribution Width 16.1 % (11.0-16.0); White Blood Count 14.9 X10*3/uL (4.8-10.8)
--- NOTE | 2022-01-20 14:15 | MHC.CM.PN ---
Addendum entered by Madeleine Alvarado 01/20/22 15:50: ANTICIPATEING DISCHRGED HOME TONIGHT NO SERVICES Original Note: nurse bilingual case manager ntoe electronic medical record reviewed alonfg with case discussed with staff nurse , met with patient , s/p hystoscopy and d&c reports history of fibroids and sever bleeding with her menses and fainitng , came to er on 01/19 required i ux prbc. met with opatient she lives alone is active, independent in all adls and mobilitity and drives a care , she has carlos of theses abnormal bleeding with her menses and goes 2-3 x month for iron infusion at [facility] , she reported she is to have a special procedure at [facility] has not had a office appointment as yet. discharge plan home no services [facility] family customs manager [facility]
--- NOTE | 2022-01-20 14:24 | P.PNOB_ITS ---
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 On Provera 10 mg p.o. q.d. 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0 MCHC 32.1 RDW 15.1 Plt Count 394 MPV 9.0 L Immature Gran % (Auto) 0.3 Neut % (Auto) 84.7 H Lymph % (Auto) 8.5 L [place] % (Auto) 5.3 Eos % (Auto) 0.5 Baso % (Auto) 0.7 Lymph # (Auto) 1.5 [place] # (Auto) 0.9 Eos # (Auto) 0.1 Baso # (Auto) 0.1 Abs Immat Gran (auto) 0.06 H Absolute Neuts (auto) 15.0 H Absolute Nucleated RBC 0.000 Nucleated RBC % (auto) 0.0 Sodium 136 Potassium 4.3 Chloride 109 H Carbon Dioxide 19 L Anion Gap 12 BUN 16 Creatinine 0.81 Estim Creat Clear Calc 108.6 Estimated GFR > 60 Random Glucose 107 Calcium 9.8 D Total Bilirubin 0.7 AST 14 ALT 17 Alkaline Phosphatase 80 D Total Protein 7.4 Albumin 4.5 Urine Color YELLOW Urine Appearance HAZY Urine pH 6.0 Ur Specific [place] >= 1.030 H Urine Protein NEG Urine Glucose (UA) NEG Urine Ketones NEG Urine Blood 3+ H Urine Nitrite NEG Ur Leukocyte Esterase NEG Urine RBC 30-49 H Urine WBC 0-2 Ur Squamous Epith Cells TRACE Urine Bacteria NONE Urine Mucus 1+ Urine Test Chlam trachomat DNA PCR N.gonorrhoeae DNA (PCR) Blood Type Antibody Screen Crossmatch 01/19/22 01/20/22 01/20/22 23:38 02:39 05:10 WBC 12.7 H RBC 3.30 L Hgb 9.9 L Hct 30.7 L MCV 93.0 MCH 30.0 MCHC 32.2 RDW 15.3 Plt Count 371 MPV 9.0 L Immature Gran % (Auto) 0.3 Neut % (Auto) 76.9 H Lymph % (Auto) 17.2 L [place] % (Auto) 4.2 Eos % (Auto) 0.8 Baso % (Auto) 0.6 Lymph # (Auto) 2.2 [place] # (Auto) 0.5 Eos # (Auto) 0.1 Baso # (Auto) 0.1 Abs Immat Gran (auto) 0.04 H Absolute Neuts (auto) 9.8 H Absolute Nucleated RBC 0.000 Nucleated RBC % (auto) 0.0 Sodium Potassium Chloride Carbon Dioxide Anion Gap BUN Creatinine Estim Creat Clear Calc Estimated GFR Random Glucose Calcium Total Bilirubin AST ALT Alkaline Phosphatase Total Protein Albumin Urine Color Urine Appearance Urine pH Ur Specific [place] Urine Protein Urine Glucose (UA) Urine Ketones Urine Blood Urine Nitrite Ur Leukocyte Esterase Urine RBC Urine WBC Ur Squamous Epith Cells Urine Bacteria Urine Mucus Urine Test NEGATIVE Chlam trachomat DNA PCR N.gonorrhoeae DNA (PCR) Blood Type O Positive Antibody Screen NEGATIVE Crossmatch See Detail 01/20/22 01/20/22 06:02 14:02 WBC 14.9 H RBC 3.15 L Hgb 9.5 L Hct 29.4 L MCV 93.3 MCH 30.2 MCHC 32.3 RDW 16.1 H Plt Count 292 MPV 9.1 L Immature Gran % (Auto) Neut % (Auto) Lymph % (Auto) [place] % (Auto) Eos % (Auto) Baso % (Auto) Lymph # (Auto) [place] # (Auto) Eos # (Auto) Baso # (Auto) Abs Immat Gran (auto) Absolute Neuts (auto) Absolute Nucleated RBC 0.000 Nucleated RBC % (auto) 0.0 Sodium Potassium Chloride Carbon Dioxide Anion Gap BUN Creatinine Estim Creat Clear Calc Estimated GFR Random Glucose Calcium Total Bilirubin AST ALT Alkaline Phosphatase Total Protein Albumin Urine Color Urine Appearance Urine pH Ur Specific [place] Urine Protein Urine Glucose (UA) Urine Ketones Urine Blood Urine Nitrite Ur Leukocyte Esterase Urine RBC Urine WBC Ur Squamous Epith Cells Urine Bacteria Urine Mucus Urine Test Chlam trachomat DNA PCR NOT DETECTED N.gonorrhoeae DNA (PCR) NOT DETECTED Blood Type Antibody Screen Crossmatch HAULAGE ENGINE OPERATOR - A/P (1) Abnormal uterine bleeding (AUB): Status: Acute Assessment and Plan: Since the patient H&H is stable, and the bleeding is minimal post D&C , will discharge patient home on Provera 10 mg p.o. q.d. and iron sulfate 325 mg p.o. q.d. discussed with the patient next step is to schedule myomectomy, the patient has an appointment at [facility] in the coming few weeks for a consult regarding minimally invasive myomectomy. Offered the patient abdominal myomectomy to be done as soon as possible at [facility], the patient's preference is for minimal invasive surgery. Instructions given to patient to come back in case of temperature above 100.4, abdominal pain, heavy vaginal bleeding, ornausea and vomiting. Discharge medications: Provera 10 mg p.o. q.d.#60 Iron sulfate 325 mg p.o. q.d. (2) Anemia: Status: Acute Assessment/Plan Procedure/Diagnosis: Procedures Operation Date: 01/20/22 04:40 <No data on this case meets the specified criteria> Operation Date: 01/20/22 04:40 <No data on this case meets the specified criteria> Operation Date: 01/20/22 05:15 Actual Procedure Side Surgeon p D&C Hysteroscopy Not Applicable Vipin Dempsey MD Time Spent With Patient Time: Total time spent is greater than 50% in coordination of care (as documented) at patient's floor/unit and/or counseling patient:
--- NOTE | 2022-04-24 14:43 | PM.EVENT ---
Event Note Date of Service: 01/20/22 Event Note: Sylvie Vidales is a 31 year old female who presented emergency room with heavy vaginal bleeding that started 1 day prior to present agent an was associated with passage of blood clots and pelvic cramping.? The patient passed out at home and was brought to the emergency.? The patient has history of 3 myomas, has a family history of DVT with her mother and was told not to be on estrogen treatment although she never had workup done for thrombogenic disorders, therefore she was treated with norethindrone, Mirena IUD and Lysteda to no avail.? Ultrasound done in September of 2021 showed the following: The uterus is anteverted and retroflexed and measures 11.3 x 5.2 x 6 cm in dimension. There is an IUD in the uterus in satisfactory position. Endometrial thickness measures 1.2 cm. There are 3 uterine fibroids.There is a 4.3 x 4 x 4.3 cm central fibroid in the body of the uterus that abut the endometrium suggestive of a subcutaneous fibroid. There is a 2.2 x 2.1 x 2.1 cm anterior uterine body intramural fibroid. There is a 1.6 x 1.7 x 1.8 cm right intramural body fibroid. The right ovary is enlarged and measures 4.1 x 4.3 x 4.1 cm, volume 38 mL. There is a 4 x 3 x 4 cm simple cyst. The left ovary is enlarged and measures 7.8 x3.5 x 4.3 cm, volume 61 mL. There is a 5.4 x 2.9 x 3 cm simple left ovarian cyst. There is no fluid in the pelvis. The patient was counseled about different options of treatment and since she is interested in future fertility and minimally invasive surgery, the patient was referred to [facility], for further management, her appointment is scheduled in 4 weeks. In the emergency room initial H&H on arrival was 11.2/34.9 repeat after 4 hours dropped to 9.9/30.7. Recommended hysteroscopy D&C possible submucosal myomectomy, possible abdominal myomectomy which was done smoothly with no complication Hospital day 1, the patient was doing well with minimal vaginal bleeding, ambulating, minimal pelvic pain and tolerated regular diet.? On Provera 10 mg p.o. q.d. She was Ambulating well. Since the patient H&H is stable, and the bleeding was minimal post D&C , the patient was discharged home on Provera 10 mg p.o. q.d. and iron sulfate 325 mg p.o. q.d. discussed with the patient next step is to schedule myomectomy, the patient has an appointment at [facility] in the coming few weeks for a consult regarding minimally invasive myomectomy.? Offered the patient abdominal myomectomy to be done as soon as possible at [facility], the patient's preference is for minimal invasive surgery. Discharge diagnosis: abnormal uterine bleeding, uterine myomaDischarge Instructions : The patient is to come back in case of temperature above 100.4, abdominal pain, heavy vaginal bleeding, ornausea and vomiting.? Discharge medications:? Provera 10 mg p.o. q.d.#60
== END 2022-01-20 16:55 | disposition home or self-care (01) ==
LOC: HO.ED 01-20 04:41 → HO.SSS 01-20 05:39 → HO.SSSA 01-20 07:08 → HO.S3 01-20 08:00
PROVIDERS: Admitting Provider Obstetrics & Gynecology; Emergency Provider Emergency Medicine; PCP Internal Medicine; Visit Provider Obstetrics & Gynecology
PROC: 0UDB8ZZ Extraction of Endometrium, Via Natural or Artificial Opening Endoscopic (ICD-10-PCS; CPT 58558; principal; 2022-01-20 05:15)
DX: N93.9 Abnormal uterine and vaginal bleeding, unspecified (principal); R10.2 Pelvic and perineal pain; N85.4 Malposition of uterus; N83.8 Other noninflammatory disorders of ovary, fallopian tube and broad ligament; N83.292 Other ovarian cyst, left side; D64.9 Anemia, unspecified; D25.9 Leiomyoma of uterus, unspecified; R55 Syncope and collapse; R00.0 Tachycardia, unspecified; Z83.2 Family history of diseases of the blood and blood-forming organs and certain disorders involving the immune mechanism; Z97.5 Presence of (intrauterine) contraceptive device; Z79.899 Other long term (current) drug therapy
CPT/HCPCS: 58558; 36415; 80053; 81001; 81025; 85025; 85027; 86850; 86900; 86901; 86923; 87491; 87591; 88305; 93005; 96360; 96361; 99218; 99285; J1100; J2250; J2405; J2765; J3010; P9016

== ENCOUNTER 2022-03-03 13:53 | Outpatient (REF) | payer BC, SELFPAY ==
[2022-03-03 14:36] LABS: COVID-19 Test Negative (Negative); IDNOW Serial# 08D9AD1C
== END 2022-03-03 13:54 | disposition home or self-care (01) ==
LOC: HO.LAB 13:53
PROVIDERS: Visit Provider Internal Medicine
DX: Z20.822 Contact with and (suspected) exposure to COVID-19 (principal)
CPT/HCPCS: 87635; C9803

== ENCOUNTER 2023-11-01 15:25 | Outpatient (AMB) | payer OTHER, SELFPAY ==
--- NOTE | 2023-11-01 15:30 | A.OFFVIS_ITS ---
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 No complaints. Last Pap was negative in 08/22 [facility] Medical History Asthma Anemia Surgical History Hx of cholecystectomy Family History Paternal Grandmother Colon cancer History of breast cancer Maternal Grandmother Ovarian cancer Mother Varicose vein of leg Hx of blood clots Social History Alcohol intake: current Alcohol intake frequency: holidays/special occasions only Comment: to OR Patient Tobacco Use Status: Never used Tobacco service: No Current occupational status: employed Female Reproductive History Menstrual Age of Menarche: 10 Duration of menses: 3-5 days Date of last menstrual period: 10/27/23 control method: none Total pregnancies: 0 Date of last pap smear: 08/29/21 History of abnormal pap smear: No Review of Systems Const All systems reviewed & are unremarkable except as noted in HPI and below Card Reports as per HPI Resp Reports as per HPI GI Reports as per HPI and Reports no additional complaints Reports as per HPI Physical Exam Vital Signs: Last Vital Signs BP 112/72 11/01/23 15:31 BMI result Body Mass Index 41.5 Const General: cooperative, healthy appearing and comfortable Chest Chest palpation & inspection: normal inspection of the chest and normal palpation of entire chest wall Breast/axilla inspection: normal inspection of the breasts and normal inspection of the axillae Breast/axilla palpation: normal palpation of the breasts, normal palpation of the axillae and no axillary lymphadenopathy Resp Effort & Inspection: normal respiratory effort Auscultation: clear to auscultation bilaterally Percussion: percussion normal Cardio Palpation: normal PMI Rate: regular rate Rhythm: regular rhythm Heart sounds: no murmurs and no rubs Peripheral pulses: Peripheral pulses 2+ throughout GI Inspection: Yes normal to inspection Palpation (GI): Soft to palpation, nontender, no guarding, not rigid and No hepatosplenomegaly present Percussion: Yes normal to percussion Auscultation: normal bowel sounds Rectal Exam - Female: deferred General: Yes bladder normal to palpation External Female Exam: No lesion Speculum Exam - Vagina: normal appearance of the vagina, normal palpation, normal vaginal discharge and not erythematous Speculum Exam - Cervix: normal appearance of the cervix and normal palpation Bimanual exam- vagina & uterus: normal bimanual exam, normal palpation, uterine size normal, bladder normal to palpation, consistency normal and normal palpation Bimanual Exam- Adnexa, other: normal adnexae, no masses and no tenderness Assessment & Plan Assessment & Plan (1) Well woman exam: Code(s): Z01.419 - Encounter for gynecological examination (general) (routine) without abnormal findings Plan: Cotesting done. Counseled the patient about the recommended dietary allowance of 1000 mg of Calcium & 600 IU of vitamin D. The patient was instructed to perform monthly self-breast exams and to schedule an annual exam in a year; All questions answered and the patient verbalized understanding. Instructed the patient to schedule annual exam in a year Coding Level of Care Code Est Pt Prev Care 18-39y([id number]) Diagnoses Well woman exam Z01.419
[2023-11-01 15:31] VITALS: BP 112/72; BMI 41.5
== END 2023-11-01 15:55 | disposition home or self-care (01) ==
LOC: HO.HWS 15:25
PROVIDERS: PCP Internal Medicine; Visit Provider Obstetrics & Gynecology
DX: Z01.419 Encounter for gynecological examination (general) (routine) without abnormal findings (principal)
CPT/HCPCS: 99395

== ENCOUNTER 2023-11-01 15:25 | Outpatient (REF) | payer OTHER, SELFPAY ==
[2023-11-08 09:33] LABS: HPV mRNA E6/E7 rflx Not Detected (Not Detected)
== END 2023-11-01 15:26 | disposition home or self-care (01) ==
LOC: HO.LNP 15:25
PROVIDERS: PCP Internal Medicine; Visit Provider Obstetrics & Gynecology
DX: Z01.419 Encounter for gynecological examination (general) (routine) without abnormal findings (principal)
CPT/HCPCS: 87624; 88142; 99395

== ENCOUNTER 2024-05-20 04:24 | Emergency (ER) | payer OTHER, SELFPAY ==
[2024-05-20 04:31] VITALS: PULSE 82; RESP 18; TEMP 37; O2SAT 99; BMI 42.1
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
--- NOTE | 2024-05-20 04:44 | ED_ITS ---
HPI - General Adult General Chief complaint: General Medical Stated complaint: Electrocuted by stove Time Seen by Provider: 05/20/24 04:44 Source: patient Mode of arrival: ambulatory Limitations: no limitations History of Present Illness ED Provider: Dr. Burnham HPI narrative: Patient got nervous because there was a light that was on with her oven. She went to unplug the oven and got a shock on he right arm, no culp no continual pain Onset (ago): minute(s) Location: right and upper extremity Related Data Home Medications ?Medication ?Instructions ?Recorded ?Confirmed budesonide-formoterol HFA 160 2 puff inhalation BID 08/24/21 01/20/22 mcg-4.5 mcg/actuation aerosol inhaler (Symbicort) loratadine 10 mg tablet 10 mg PO DAILY PRN Allergic 08/24/21 01/20/22 Symptoms Previous Rx's ?Medication ?Instructions ?Recorded fluticasone furoate 200 1 ea inhalation RDAILY #28 ea 01/20/22 mcg-vilanterol 25 mcg/dose inhalation powder (Breo Ellipta) ferrous sulfate 325 mg (65 mg 325 mg PO DAILY #60 tabs 03/13/22 iron) tablet Allergies Allergy/AdvReac Type Severity Reaction Status Date / Time apple Allergy Itching Verified 05/20/24 04:33 Review of Systems Review of Systems: Yes all other systems are reviewed and are negative Neurologic: Denies Sensory deficit (Neuro) PMFSH Past Medical History Medical History Asthma Anemia Surgical History Hx of cholecystectomy Family History Family History Paternal Grandmother Colon cancer History of breast cancer Maternal Grandmother Ovarian cancer Mother Varicose vein of leg Hx of blood clots Social History Social History Alcohol intake: current Alcohol intake frequency: holidays/special occasions only Comment: to OR Patient Tobacco Use Status: Never used Tobacco service: No Current occupational status: employed Physical Exam ED Vital Signs: Vital Signs - 24 hr 05/20/24 04:31 Temperature 98.6 F Pulse Rate 82 Respiratory Rate 18 Pulse Oximetry 99 Oxygen Delivery Method Room Air BMI result Body Mass Index 42.1 Const General: healthy appearing Nutritional Appearance: average body habitus Orientation/consciousness: oriented to person and patient oriented x3 Limitations: no limitations HENMT Head: Yes normal to inspection Ears: external ears normal General nose exam: Normal external nose present Mouth: Normal oral and palatal mucosa present and oropharynx normal Throat: Yes posterior oropharynx normal Eyes General: appearance normal, both eyes and all related structures Neck Neck: Yes normal visual inspection Chest Chest palpation & inspection: normal inspection of the chest Resp Auscultation: clear to auscultation bilaterally Cardio Jugular venous distension: no JVD Rate: regular rate Rhythm: regular rhythm Heart sounds: S1 normal heart sound present and S2 normal heart sound present GI Inspection: Yes normal to inspection Palpation (GI): Soft to palpation, nontender and No hepatosplenomegaly present Auscultation: normal bowel sounds General: Yes no CVA tenderness Back/Spine/Pelvis Back: no CVA tenderness Skin Other: no entry or exit culp General skin exam: no rashes or lesions noted Neuro General: oriented to person and patient oriented x3 Cranial nerves: Yes CN's II-XII intact bilaterally Motor exam (neuro): 5/5 motor strength present throughout Sensory Exam: No Sensory deficit (Neuro) Extrem General: Yes normal to inspection Psych Appearance: grossly normal Course Reevaluation(s) Reevaluation #1: patient with a low energy shock will dc home Time: 04:46 Medical Decision Making Differential Diagnosis Differential Diagnoses: The differential diagnosis associated with the presentation includes (electric shock) Independent Interpretation I performed an independent interpretation of an: Rhythm Strip (sinus 75) Discharge Plan Discharge Clinical Impression: Electric shock Patient Disposition: Home, Self-Care Prescriptions: No Action ferrous sulfate 325 mg (65 mg iron) tablet 325 mg PO DAILY Qty: 60 0RF Breo Ellipta 200-25 mcg/dose Blister With Device 1 ea inhalation RDAILY Qty: 28 0RF loratadine 10 mg tablet 10 mg PO DAILY PRN (Reason: Allergic Symptoms) budesonide-formoterol [Symbicort] 160-4.5 mcg/actuation HFA aerosol inhaler 2 puff inhalation BID Referrals: Joseline Duran MD [Primary Care Provider] - 5 days Print Language: Icelandic
[2024-05-20 04:53] VITALS: BP 117/81; PULSE 74; RESP 16; TEMP 37; O2SAT 98
== END 2024-05-20 05:01 | disposition home or self-care (01) ==
LOC: HO.ED 05:03
PROVIDERS: Emergency Provider Emergency Medicine; PCP Internal Medicine
DX: T75.4XXA Electrocution, initial encounter (principal); W86.1XXA Exposure to industrial wiring, appliances and electrical machinery, initial encounter; Y93.89 Activity, other specified; Y92.098 Other place in other non-institutional residence as the place of occurrence of the external cause; Y99.8 Other external cause status; Z79.899 Other long term (current) drug therapy
CPT/HCPCS: 99282

== ENCOUNTER 2024-10-22 19:37 | Emergency (ER) | payer OTHER, SELFPAY ==
--- NOTE | ~2024-10-22 | XR_ITS ---
CLINICAL HISTORY: cough 2 view chest x-ray Comparison: 10/02/2018 Findings: Lungs are clear without acute infiltrates. No pneumothorax. Heart size normal. No acute bony abnormalities. Impression: No acute processes This document has been electronically signed by: Alfie Aguiar MD on 10/22/2024 20:47:09
[2024-10-22 19:45] VITALS: BP 126/86; PULSE 112; RESP 20; TEMP 36.9; O2SAT 97; BMI 38.4
--- NOTE | 2024-10-22 19:51 | ED.GENADULT ---
HPI - General Adult General Chief complaint: Upper Respiratory Symptoms Stated complaint: flu like symptoms Time Seen by Provider: 10/22/24 23:41 Source: patient Mode of arrival: ambulatory Limitations: no limitations History of Present Illness ED Provider: Sylvie Pichardo NP HPI narrative: Patient is a 33-year-old female who presents emergency department for evaluation. She reports over the past 2 days she has been ill with intermittent fever responsive to Tylenol/ibuprofen, productive cough with yellow phlegm, intermittent headache without associated neck pain or neck stiffness, without dizziness lightheadedness or vision changes, in addition she has been having bilateral ear and throat pain. She denies known sick contacts. She denies shaking chills, chest pain, shortness of breath, difficulty breathing. She does admit to a history of asthma, but states she has not required an albuterol inhaler in many years, and has not feel as though she requires 1 during this illness she does have one at home available to her for use Related Data Home Medications ?Medication ?Instructions ?Recorded ?Confirmed budesonide-formoterol HFA 160 2 puff inhalation BID 08/24/21 01/20/22 mcg-4.5 mcg/actuation aerosol inhaler (Symbicort) loratadine 10 mg tablet 10 mg PO DAILY PRN Allergic 08/24/21 01/20/22 Symptoms Previous Rx's ?Medication ?Instructions ?Recorded fluticasone furoate 200 1 ea inhalation RDAILY #28 ea 01/20/22 mcg-vilanterol 25 mcg/dose inhalation powder (Breo Ellipta) ferrous sulfate 325 mg (65 mg 325 mg PO DAILY #60 tabs 03/13/22 iron) tablet oseltamivir 75 mg capsule (Tamiflu) 75 mg PO BID 5 days #10 caps 10/22/24 Allergies Allergy/AdvReac Type Severity Reaction Status Date / Time apple Allergy Itching Verified 10/22/24 19:46 Review of Systems Review of Systems: Yes all other systems are reviewed and are negative PMFSH Past Medical History Attestation statement: The following information was validated with the patient. Source: old records reviewed Medical History Asthma Anemia Surgical History Hx of cholecystectomy Family History Family History Paternal Grandmother Colon cancer History of breast cancer Maternal Grandmother Ovarian cancer Mother Varicose vein of leg Hx of blood clots Social History Social History Alcohol intake: current Alcohol intake frequency: holidays/special occasions only Comment: to OR Patient Tobacco Use Status: Never used Tobacco service: No Current occupational status: employed Physical Exam ED Vital Signs: Vital Signs - 24 hr 10/22/24 19:45 Temperature 98.4 F Pulse Rate 112 H Respiratory Rate 20 Blood Pressure 126/86 Pulse Oximetry 97 Oxygen Delivery Method Room Air BMI result Body Mass Index 38.4 Appearance: Alert.?Oriented to person, place and time. No acute distress.?Normal affect. Eyes: Pupils equal, round and reactive to light.? ENT: TM normal bilaterally. Pharynx mildly erythematous without tonsillar hypertrophy or exudates. Uvula is midline. No trismus. No drooling.?? Neck: Normal inspection.? Neck supple.??No cervical adenopathy CVS: Heart sounds normal. Normal heart rate and rhythm.? Pulses normal.?? Respiratory: No respiratory distress.? Lung sounds clear to auscultation bilaterally?? Abdomen: Soft and non-tender. Normoactive bowel sounds. Skin: Skin warm and dry.? Normal skin color.? ? Extremities: No lower extremity edema.? Neuro: Moves all extremities spontaneously. Sensation intact bilaterally. No motor deficits. Ambulates with normal steady gait. Course Course Course Narrative: RME, this is a rapid medical exam performed by Mazin Whiting please refer to primary provider for complete H&P- 30-year-old female presents for evaluation of cough and shortness of breath. She does have a history of asthma. She has been using her inhalers with minimal relief. She also reports subjective fevers and chills. Plan for chest x-ray and flu swab. Lungs clear to auscultation on exam Medical Decision Making Medical Decision Making MDM Narrative: Patient is a 33-year-old female with past medical history of on anemia, presenting for evaluation of pro type symptoms as per HPI. COVID-19/RSV testing are negative. Influenza a testing is positive. We discussed indications for use, potential side effects of Tamiflu patient is interested in taking Tamiflu, prescription has been sent to pharmacy. She does have a history of asthma, she is without shortness of breath or difficulty breathing, LS CTA speaking clear full sentences without tachypnea or hypoxia. CXR is without consolidation or infiltrate to suggest pneumonia. Discussed conservative treatment including rest, hydration, Tylenol/ibuprofen as needed for fever and body aches, saline nasal spray, humidifier, okju-qoz-egrcokr cold medication. Advised to follow-up with primary care provider as needed, discussed reasons to return back to the emergency department. All questions were answered. Patient discharged home in stable condition. Differential Diagnosis Differential Diagnoses: The differential diagnosis associated with the presentation includes ( See narrative above) Admission/Observation Consideration of admission/observation: Escalation of care including admission/observation considered ( see narrative above) Lab Data MDM Lab Attestation statement: I reviewed the patient's lab results. ( see narrative above) Labs: Lab Results 10/22/24 Range/Units 20:52 Influenza Type A (PCR) POSITIVE A (Negative) Influenza Type B (PCR) NEGATIVE (Negative) RSV RNA Qual (PCR) NEGATIVE (Negative) SARS-CoV-2 RNA (RT-PCR) NEGATIVE (Negative) Independent Interpretation I performed an independent interpretation of an: Plain X-Ray (See narrative above) Radiology Impression Discussion of test interpretation with radiology: I have reviewed the radiologist's reading. Radiologist Impression: 2 view chest x-ray Comparison: 10/02/2018 Findings: Lungs are clear without acute infiltrates. No pneumothorax. Heart size normal. No acute bony abnormalities. Impression: No acute processes External Record Review External record reviewed: Outpatient record Prescription Management I considered prescription management with: Pain Medication ( acetaminophen/ibuprofen) and Antiviral Discharge Plan Discharge Clinical Impression: Influenza Patient Disposition: Home, Self-Care Instructions: Influenza (ED) Additional Instructions: Be sure to rest, stay well hydrated drinking plenty of fluids, eat small frequent meals. Tylenol/ibuprofen can be used as needed for fever/pain. Prescription for Tamiflu has been sent to the pharmacy, as mentioned this can come with side effects typically nausea, vomiting, headaches. Xktq-keq-ymwlkuh cold medications may be helpful as well for symptoms. Saline nasal spray, humidifier may be helpful for nasal congestion. You may return to the emergency department with any new or worsening symptoms or concerns. Follow-up with your primary care provider as needed. Should remain out of school/ work until symptoms have resolved and have been without a fever for 24 hours without the use of Tylenol or ibuprofen. Prescriptions: New oseltamivir [Tamiflu] 75 mg capsule 75 mg PO BID 5 Days Qty: 10 0RF No Action ferrous sulfate 325 mg (65 mg iron) tablet 325 mg PO DAILY Qty: 60 0RF Breo Ellipta 200-25 mcg/dose Blister With Device 1 ea inhalation RDAILY Qty: 28 0RF loratadine 10 mg tablet 10 mg PO DAILY PRN (Reason: Allergic Symptoms) budesonide-formoterol [Symbicort] 160-4.5 mcg/actuation HFA aerosol inhaler 2 puff inhalation BID Referrals: Joseline Duran MD [Primary Care Provider] - Print Language: [place] Korean
[2024-10-22 21:39] LABS: Influenza A PCR POSITIVE (Negative); Influenza B PCR NEGATIVE (Negative); Resp Syncy Virus RNA Qual PCR NEGATIVE (Negative); SARS COV2 PCR INHOUSE NEGATIVE (Negative)
--- OUTSIDE RECORDS SUMMARY | 2024-10-22 23:46 | XMS_ITS | Clinical Summary ---
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 0 Active loratadine (CLARITIN) 10 MG tablet Take 10 mg by mouth daily. 0 Active levonorgestrel (MIRENA) 20 MCG/24HR IUD 1 each by Intrauterine route once. 0 Active medroxyPROGESTERone (PROVERA) 10 MG tablet Take 10 mg by mouth daily. 0 03/13/2022 Active Active Problems Problem Noted Date Diagnosed Date Uterine leiomyoma 05/15/2022 Menorrhagia with regular cycle 11/05/2020 Overview: Last Assessment & Plan: Ultrasound reviewed. Plan to continue with POPs. In addition she will take Ibuprofen 600mg q6 hours for the first 3-5 days of menses. If menses become heavy again she will return to discuss alternative treatment options. Iron deficiency anemia due to chronic blood loss 05/27/2020 Overview: Due to menorrhagia Moderate persistent asthma without complication 05/18/2020 Perennial allergic rhinitis 07/16/2019 Gastroesophageal reflux disease with esophagitis 08/15/2017 Family History Medical History Relation Name Comments No Sig Med Hx Brother Anemia Father Ulcers Father Anemia Mother No Sig Med Hx Sister Relation Name Status Comments Brother Alive Father Alive Mother Alive Sister Alive Social History Tobacco Use Types Packs/Day Years Used Date Smoking Tobacco: Never Smokeless Tobacco: Never Alcohol Use Standard Drinks/Week Comments Not Currently 0 (1 standard drink = 0.6 oz pur e alcohol) Sex and Gender Information Value Date Recorded Sex Assigned at Female 03/31/2022 2:48 PM EDT Gender Identity Not on file Sexual Orientation Not on file Job Start Date Occupation Industry Not on file Not on file Not on file Last Filed Vital Signs Vital Sign Reading Time Taken Comments Blood Pressure 117/82 05/15/2022 11:30 AM EDT Pulse 83 05/15/2022 11:30 AM EDT Temperature 36.6 ??C (97.9 ??F) 05/15/2022 11:30 AM E DT Respiratory Rate 18 04/03/2022 2:08 PM EDT Oxygen Saturation 98% 05/15/2022 11:30 AM EDT Inhaled Oxygen Concentration - - Weight 97.1 kg (214 lb) 05/15/2022 11:30 AM EDT Height 157.5 cm (5' 2 ) 05/15/2022 11:30 AM EDT Body Mass Index 39.14 05/15/2022 11:30 AM EDT Plan of Treatment Health Maintenance Due Date Last Done Comments Hepatitis B Vaccines (1 of 3 - 3-dose series) 1991 Hepatitis C Screening 1991 Depression Screening 2003 BMI Counseling 11/30/2009 Preventative Health Evaluation 11/30/2009 Cervical Cancer Screening (Pap Smear) 11/30/2012 COVID-19 Vaccine (2023-2 5 season) 2024 02/17/2021, 01/22/2021 Influenza Vaccine (#1) 2024 , 07/09/2019 DTap / Tdap / Td (2 - Td or Tdap) 09/10/2028 09/10/2018 Pneumococcal Vaccine Aged Out 06/23/2021 No long er eligible based on patient's age to complete this topic RSV Ped < 20 months Aged Out No longe r eligible based on patient's age to complete this topic Care Teams Optical Model Maker And Tester Relationship Specialty Start Date End Date Joseline Duran MD PCP - General Internal Medicine 07/13/21
[2024-10-22 23:49] VITALS: BP 126/86; PULSE 112; RESP 20; TEMP 36.9; O2SAT 97
== END 2024-10-22 23:49 | disposition home or self-care (01) ==
PROVIDERS: Physician Assistant; Emergency Provider Emergency Medicine; PCP Internal Medicine
DX: J10.1 Influenza due to other identified influenza virus with other respiratory manifestations (principal); R05.9 Cough, unspecified; R50.9 Fever, unspecified; R51.9 Headache, unspecified; Z03.818 Encounter for observation for suspected exposure to other biological agents ruled out; J45.909 Unspecified asthma, uncomplicated
CPT/HCPCS: 0241U; 71046; 99282; 99283

== ENCOUNTER → 2024-10-22 19:52 | Outpatient (BNV) | payer OTHER, SELFPAY | PROVIDERS: PCP Internal Medicine; Visit Provider Radiology Diagnostic Radiology | DX: R05.9 Cough, unspecified (principal) | CPT/HCPCS: 71046 ==

== ENCOUNTER 2025-01-01 15:50 | Emergency (ER) | payer OTHER, SELFPAY ==
--- NOTE | ~2025-01-01 | XR_ITS ---
CLINICAL HISTORY: cp 2 view chest x-ray Comparison: CR - XR CHEST 2V - 10/22/24 20:17 EST CR/SR - CHEST 2 VIEWS - 07/02/19 17:27 EDT Findings: The lungs are clear. Normal size heart. No acute fracture. IMPRESSION: 1. No acute findings. This document has been electronically signed by: Amara Hitchcock MD on 01/01/2025 17:48:37
--- NOTE | 2025-01-01 15:53 | ECG_ITS ---
Test Reason : cp Blood Pressure : */* mmHG Vent. Rate : 91 BPM Atrial Rate : 91 BPM P-R Int : 146 ms QRS Dur : 76 ms QT Int : 338 ms P-R-T Axes : 58 44 33 degrees QTcB Int : 415 ms Normal sinus rhythm Normal ECG When compared with ECG of 19-Jan-2022 22:10, No significant change was found Referred By: Generic ED Physician Electronically Signed By: Zenon Del Valle
[2025-01-01 16:53] VITALS: BP 115/83; PULSE 84; RESP 16; TEMP 36.4; O2SAT 100; BMI 38.2
--- NOTE | 2025-01-01 17:24 | ED.CHESTPAIN ---
HPI - Chest Pain General Chief Complaint: Chest Pain Stated Complaint: chest pain,left arm tingling Time Seen by Provider: 01/01/25 21:21 Source: patient Mode of arrival: ambulatory History of Present Illness ED Provider: HPI narrative: Patient no significant past medical history complaining of left-sided sharp chest pain for last 1 week intermittently sharp in lasting only for few sec although swelling numbness of the left hand for 1 week off and on patient has had a cardiogram and labs done prior to my evaluation which was normal Related Data Home Medications ?Medication ?Instructions ?Recorded ?Confirmed budesonide-formoterol HFA 160 2 puff inhalation BID 08/24/21 01/20/22 mcg-4.5 mcg/actuation aerosol inhaler (Symbicort) loratadine 10 mg tablet 10 mg PO DAILY PRN Allergic 08/24/21 01/20/22 Symptoms Previous Rx's ?Medication ?Instructions ?Recorded fluticasone furoate 200 1 ea inhalation RDAILY #28 ea 01/20/22 mcg-vilanterol 25 mcg/dose inhalation powder (Breo Ellipta) ferrous sulfate 325 mg (65 mg 325 mg PO DAILY #60 tabs 03/13/22 iron) tablet acetaminophen 500 mg capsule 1,000 mg (2 x 500 mg) PO Q6H PRN 10/22/24 fever or pain #30 caps oseltamivir 75 mg capsule (Tamiflu) 75 mg PO BID 5 days #10 caps 10/22/24 Allergies Allergy/AdvReac Type Severity Reaction Status Date / Time apple Allergy Itching Verified 01/01/25 16:55 Review of Systems Review of Systems: Yes all other systems are reviewed and are negative PMFSH Past Medical History Medical History Asthma Anemia Surgical History Hx of cholecystectomy Family History Family History Paternal Grandmother Colon cancer History of breast cancer Maternal Grandmother Ovarian cancer Mother Varicose vein of leg Hx of blood clots Social History Social History Alcohol intake: current Alcohol intake frequency: holidays/special occasions only Comment: to OR Patient Tobacco Use Status: Never used Tobacco Smoked in Last 30 Days: No Use of substances other than those prescribed or required for medical reasons: No Advance Directives: No Advance Directives Information Provided: No Do you have a plan to hurt others: No Plan Patient : No service: No Current occupational status: employed Physical Exam Vital Signs: Vital Signs: Last Vital Signs Temp 98.0 F 01/01/25 21:58 Pulse 86 01/01/25 21:58 Resp 16 01/01/25 21:58 BP 125/70 01/01/25 21:58 Pulse Ox 98 01/01/25 21:58 O2 Del Method Room Air 01/01/25 21:58 BMI result Body Mass Index 38.2 Appearance: Alert. Oriented X3. No acute distress. Eyes: No pallor or icterus ENT: Pharynx normal. Oral Mucosa moist Neck: Normal inspection. Neck supple. No midline tenderness CVS: Normal heart rate and rhythm. Pulses normal. Respiratory: No respiratory distress. Equal air entry bilateral, no wheezing/rales/rhonchi Abdomen: Soft and nontender. Bowel sounds are present, no mass palpable, no CVA tenderness Skin: Skin warm and dry. Normal skin color. Normal skin turgor. Extremities: No lower extremity edema. No calf tenderness Neuro: Oriented X 3. No motor deficit. No sensory deficit.No cerebellar signs , cranial nerves II-XII intact Course Course Course Narrative: RME: 34 yold female presents tot he ED for left sided chest pain for one week. patient denies any shortness of breath or coughing. Patient denies any pleurisy or leg swelling or calf pain. Patient admits to working out and may have pulled muscle in chest. Labs EKG chest x-ray ordered Medical Decision Making Medical Decision Making MDM Narrative: Patient has atypical chest pain heart score of 0 advised to follow with PCP Lab Data MDM Lab Attestation statement: I reviewed the patient's lab results. 01/01/25 17:19 01/01/25 17:19 Labs: Lab Results 01/01/25 Range/Units 17:19 WBC 8.4 (4.8-10.8) X10*3/uL RBC 4.85 D (4.20-5.50) X10*6/uL Hgb 14.7 D (12.0-16.0) g/dl Hct 45.2 D (37.0-47.0) % MCV 93.2 (80.0-98.0) fL MCH 30.3 (27.0-33.0) pg MCHC 32.5 (31.0-35.0) g/dl RDW 12.7 (11.0-16.0) % Plt Count 349 (160-400) X10*3/uL MPV 9.3 L (9.4-12.3) fL Immature Gran % (Auto) 0.4 (0.0-0.4) % Neut % (Auto) 59.6 (45-73) % Lymph % (Auto) 24.1 (20-40) % [place] % (Auto) 8.4 (2-11) % Eos % (Auto) 5.9 H (0-4) % Baso % (Auto) 1.6 (0-2) % Lymph # (Auto) 2.0 (1.2-4.9) X10*3/uL [place] # (Auto) 0.7 (0.1-1.2) X10*3/uL Eos # (Auto) 0.5 H (0.0-0.4) X10*3/uL Baso # (Auto) 0.1 (0.0-0.2) X10*3/uL Abs Immat Gran (auto) 0.03 (0.00-0.03) X10*3/uL Absolute Neuts (auto) 5.0 (2.0-8.3) x10*3/uL Absolute Nucleated RBC 0.000 (0.0-0.012) X10*3/uL Nucleated RBC % (auto) 0.0 (0.0-0.2) /100WBC Sodium 138 (135-145) mmol/L Potassium 4.4 (3.3-5.1) mmol/L Chloride 106 (96-108) mmol/L Carbon Dioxide 22 (22-29) mmol/L Anion Gap 14 (12-20) BUN 14 (9-16) mg/dL Creatinine 0.72 (0.5-1.4) mg/dL Estim Creat Clear Calc 119.3 Estimated GFR > 60 Random Glucose 82 (60-115) mg/dL Calcium 10.3 H (8.4-10.2) mg/dL Total Bilirubin 1.3 H (0.0-1.0) mg/dL AST 43 H (5-31) U/L ALT 72 H (0-31) U/L Alkaline Phosphatase 76 (39-117) U/L Troponin I High Sens < 2.7 (<3.5-17.0) ng/L Total Protein 7.9 (6.5-8.0) g/dL Albumin 4.7 (3.5-5.0) g/dL Influenza Type A (PCR) NEGATIVE (Negative) Influenza Type B (PCR) NEGATIVE (Negative) RSV RNA Qual (PCR) NEGATIVE (Negative) SARS-CoV-2 RNA (RT-PCR) NEGATIVE (Negative) Independent Interpretation I performed an independent interpretation of an: EKG Interpretation: Normal sinus rhythm heart rate 91 beats per minute normal interval normal axis no acute STT wave changes no acute ischemia Radiology Impression Discussion of test interpretation with radiology: I have reviewed the radiologist's reading. Radiologist Impression: NAD Discharge Plan Discharge Clinical Impression: Atypical chest pain, Paresthesia and pain of left extremity Patient Disposition: Home, Self-Care Instructions: Chest Pain (ED), Paresthesia (ED) Additional Instructions: Your chest pain is unlikely from the heart Your blood workup and cardiogram normal Follow up with your PCP Prescriptions: No Action ferrous sulfate 325 mg (65 mg iron) tablet 325 mg PO DAILY Qty: 60 0RF Breo Ellipta 200-25 mcg/dose Blister With Device 1 ea inhalation RDAILY Qty: 28 0RF oseltamivir [Tamiflu] 75 mg capsule 75 mg PO BID 5 Days Qty: 10 0RF acetaminophen 500 mg capsule 1,000 mg PO Q6H PRN (Reason: fever or pain) Qty: 30 0RF loratadine 10 mg tablet 10 mg PO DAILY PRN (Reason: Allergic Symptoms) budesonide-formoterol [Symbicort] 160-4.5 mcg/actuation HFA aerosol inhaler 2 puff inhalation BID Interventions: ED Discharge Assessment Last Done: 01/01/25 21:58 Discharge Date/Time: 01/01/25 21:59 Print Language: Armenian
[2025-01-01 17:31] LABS: MANUAL DIFF FLAG NO
[2025-01-01 17:33] LABS: Basophils Absolute Auto 0.1 X10*3/uL (0.0-0.2); Basophils Percent Auto 1.6 % (0-2); Eosinophils Absolute Auto 0.5 X10*3/uL (0.0-0.4); Eosinophils Percent Auto 5.9 % (0-4); Hematocrit 45.2 % (37.0-47.0); Hemoglobin 14.7 g/dl (12.0-16.0); Imm Gran Abs Auto 0.03 X10*3/uL (0.00-0.03); Imm Gran Pct Auto 0.4 % (0.0-0.4); Lymphocytes Percent Auto 24.1 % (20-40); Mean Corpuscular HGB Conc 32.5 g/dl (31.0-35.0); Mean Corpuscular Hemoglobin 30.3 pg (27.0-33.0); Mean Corpuscular Volume 93.2 fL (80.0-98.0); Mean Platelet Volume 9.3 fL (9.4-12.3); Monocytes Absolute Auto 0.7 X10*3/uL (0.1-1.2); Monocytes Percent Auto 8.4 % (2-11); Neutrophils Percent Auto 59.6 % (45-73); Platelet Count 349 X10*3/uL (160-400); Red Blood Count 4.85 X10*6/uL (4.20-5.50); Red Cell Distribution Width 12.7 % (11.0-16.0); White Blood Count 8.4 X10*3/uL (4.8-10.8)
[2025-01-01 17:47] LABS: Alanine Aminotransferase 72 U/L (0-31); Albumin Level 4.7 g/dL (3.5-5.0); Alkaline Phosphatase 76 U/L (39-117); Anion Gap 14 (12-20); Aspartate Amino Transferase 43 U/L (5-31); Bilirubin Total 1.3 mg/dL (0.0-1.0); Blood Urea Nitrogen 14 mg/dL (9-16); Calcium 10.3 mg/dL (8.4-10.2); Carbon Dioxide 22 mmol/L (22-29); Chloride 106 mmol/L (96-108); Creatinine Clr Calc Pharmacy 119.3; Estimated Glomerular Filt Rate > 60; Glucose Random 82 mg/dL (60-115); Potassium 4.4 mmol/L (3.3-5.1); Sodium 138 mmol/L (135-145); Total Protein 7.9 g/dL (6.5-8.0)
[2025-01-01 17:57] LABS: Troponin-I High Sensitivity < 2.7 ng/L (<3.5-17.0)
[2025-01-01 18:13] LABS: Influenza A PCR NEGATIVE (Negative); Influenza B PCR NEGATIVE (Negative); Resp Syncy Virus RNA Qual PCR NEGATIVE (Negative); SARS COV2 PCR INHOUSE NEGATIVE (Negative)
--- OUTSIDE RECORDS SUMMARY | 2025-01-01 20:48 | XMS_ITS | Encounter Summary ---
Author Organization [employer] Address [address] [place] [address] Care Team Providers Care Pole Maker Name Role Phone Albert Urias MD Primary Care Provider [phone] Reason for Visit * Reason Onset Date Comments Chest Pain 12/31/2024 Encounter Details Date Type Department Care Team ([facility] st Contact Info) Description 12/31/2024 Telephone Adult Medicine [address] [phone] Albert Urias MD [address] [place] [phone] Chest Pain Social History Tobacco Use Types Packs/Day Years Used Date Smoking Tobacco: Never Smokeless Tobacco: Never Alcohol Use Standard Drinks/Week Comments No 0 (1 standard drink = 0.6 oz pur e alcohol) Comments No Sex and Gender Information Value Date Recorded Sex Assigned at Not on file Legal Sex Female 8:02 AM EDT Gender Identity Not on file Sexual Orientation Not on file documented as of this encounter Progress Notes * Bette Oh RN - 12/31/2024 1:55 PM EDT Pt. States over the last 2 weeks she has had chest heaviness and pressure feeling left breast armpit area . She denies feeling sob, weak or having sob . She has been having her heart race and palpitations on and off . The chest pressure last approx 2 minutes at a time and has already had 2 episodestoday. She was at [employer] taking her bp and it said abd. High she states the bp read 125/ over high 80's and pulse was normal . She is taking magnesium for low mg and iron iron supplements for low iron , no black stools but dark green . I advised pt. With her freq. Episodes over last 2 weeks of chest heaviness and palpitations to be evaluated in the ER. And to follow up with office after. Pt. Looking to have apt. For continued rt upper abd. Pain that she was already evaluated for in office. I advised while in ER inform them of rt upper abd. Discomfort and to follow up in office after evaluation in ER. She verbalized understanding . * Lexy George - 12/31/2024 12:25 PM EDT Patient call requires triage: Symptoms patient is presenting: Patient is having right side chest pain. Pain comes and goes and does not travel anywhere that she can remember. Patient had a little bit of chest tightness after the gym. She took her blood pressure at [employer] and her blood pressure was 120/85. Did call triage nurses but unable to connect. How long has patient had these symptoms?: Chest pain on and off 1 week For ALL patients calling to schedule any appointment (routine, sick visit, follow up, consult, etc.) in the outpatient setting please ask the following questions: Do you have fever of higher than 101, sore throat with difficulty swallowing or severe shortness ofbreath? no If YES to any of these above symptoms, send a message to triage and do not book. Red dot. If no, an audio or video visit should be booked. Have you had close contact with someone with Coronavirus in the last 14 days? no Have you traveled abroad? no Have you traveled recently to another state outside of [place], [place], [place], [place], [place], [place], [place]? no o If yes, did you quarantine for 14 days or have a negative covid test? no If yes to any of the above, patient is not to be scheduled in office until after 14 day quarantine or negative covid test. If pain or injury related was it due to an accident at work or from a motor vehicle accident? If yes, date of accident/Injury: No If yes, gather 3rd libertarian insurance information Third Libertarian Information: not applicable PCP: Albert Urias MD Payor: [facility] PLAN / Plan: [employer]ICA[employer] / Product Type: *No Product type* / documented in this encounter Plan of Treatment Not on file documented as of this encounter Visit Diagnoses Not on filedocumented in this encounter Care Teams Pole Maker Relationship Specialty Start Date End Date Albert Urias MD [address] [place] [address] PCP - General Internal Medicine 01/26/22 documented as of this encounter
--- OUTSIDE RECORDS SUMMARY | 2025-01-01 20:48 | XMS_ITS | Clinical Summary ---
Author Organization [facility] [employer] [facility] Address [address] [place] [address] Care Team Providers Care Ship'S Pilot Name Role Phone Albert Urias MD Primary Care Provider Allergies Active Allergy Reactions Criticality Noted Date Comments Apple Itching 07/16/2019 Oral allergy Kiwi (Actinidia Chinensis) Itching 9 Oral allergy Pear Itching 07/16/2019 Oral allergy Medications ibuprofen-aceta minophen (AdviL Dual Action) 125-250 mg tablet Take 2 Tablets by mouth 2 times daily as needed. Active loratadine (CLARITIN) 10 mg tablet Take 1 tablet (10 mg total) by mouth 1 (one) time each day. 90 tablet 1 4 Active fluticasone propionate (FLONASE) 50 mcg/actuation nasal spray Administer 1 spray into each nostril 1 (one) time each day. Shake gently. Before first use, prime pump. After use, clean tip and replace cap. 16 g 3 4 Active magnesium oxide (MAG-OX) 400 mg magnesium tablet Take 1 tablet (400 mg total) by mouth 1 (one) time each day. 90 tablet 1 4 Active ferrous sulfate 325 mg (65 mg iron) EC tablet Take 1 tablet (325 mg total) by mouth 3 (three) times a week. Do not crush, chew, or split. 90 each 4 Active cholecalciferol (VITAMIN D-3) 50 mcg (2,000 unit) tablet Take 1 tablet (2,000 Units total) by mouth 1 (one) time each day. 90 tablet 3 4 Active Active Problems Problem Noted Date Diagnosed Date Abnormal chest CT 08/15/2024 Overview (08/15/2024): ?residual thymus on cta Obesity (BMI 35.0-39.9 without comorbidity) 08/04 Varicose veins of left lower extremity with pain 08/24/2023 Menorrhagia with regular cycle 11/05/2020 Overview (08/15/2024): Last Assessment & Plan: Ultrasound reviewed. Plan to continue with POPs. In addition she will take Ibuprofen 600mg q6 hours for the first 3-5 days of menses. If menses become heavy again she will return to discuss alternative treatment options. Iron deficiency anemia 05/27/2020 Overview (08/15/2024): Due to menorrhagia Moderate persistent asthma without complication 05/18/2020 Perennial allergic rhinitis 07/16/2019 Pollen-food allergy 07/16/2019 Recurrent cough 07/16/2019 Gastroesophageal reflux disease with esophagitis 08/15/2017 Encounters Date Type Department Care Team Description 12/31/2024 Telephone Adult Medicine [address] [phone] Albert Urias MD Chest Pain from Last 3 Months Immunizations Name Administration Dates Next Due Influenza Quadravalent, MDCK , 0.5ml, preservative free (Flucelvax) 6mo and older 08/24/2023,06/23/2021,07/09/2019 Influenza, Unspecified 06/05/2022 PPD Test 01/26/2016 [employer] SARS-CoV-2 COVID-19, mRNA, LNP-S, preservative free 02/17/2021,01/22/2021 Pneumococcal polysaccharide 23 valent (Pneumovax 23) 2yo and older 06/23/2021 Tdap Tetanus diptheria acell ular pertussis (Boostrix; Adacel) 7yo and older 09/10/2018 Surgical History Surgery Date Site/Laterality Comments CHOLECYSTECTOMY PROCEDURE: HISTORICAL CHOLECYSTECTOMY OTHER SURGICAL HISTORY PROCEDURE: [place] MYOMECTOMY 1-4 MYOMAS W/250 GM/< ABDOMINAL APPR CHOLECYSTECTOMY PROCEDURE: [place] LAPAROSCOPY SURG CHOLECYSTECTOMY Medical History Medical History Date Comments Abnormal chest CT DX:Abnormal ch est CT; COMMENT: ?residual thymus on cta GERD (gastroesophageal reflux disease) DX:GERD (gastroesophageal reflux disease) Mild intermittent asthma, uncomplicated DX:Mild intermittent asthma, uncomplicated Morbid obesity (CMS/HCC V24, CMS/HCC V28) DX:Morbid obesity (HCC) Right upper quadrant pain DX:Rig ht upper quadrant pain Abdominal pain DX:Abdominal charles n Family History Medical History Relation Name Comments Diabetes Maternal Grandfather Cervical cancer Maternal Grandmother Other: Other Maternal Grandmother Ovarian or uterine Other: ovarian cancer Maternal Grandmother Pancreatic cancer Other Prostate cancer Paternal Grandfather Breast cancer Paternal Grandmother Colon cancer Paternal Grandmother Diabetes Paternal Grandmother Relation Name Status Comments Father Alive Maternal Grandfather Maternal Grandmother Mother Alive Other Paternal Grandfather Paternal Grandmother Social History Tobacco Use Types Packs/Day Years Used Date Smoking Tobacco: Never Smokeless Tobacco: Never Alcohol Use Standard Drinks/Week Comments No 0 (1 standard drink = 0.6 oz pur e alcohol) Comments No Sex and Gender Information Value Date Recorded Sex Assigned at Not on file Legal Sex Female 8:02 AM EDT Gender Identity Not on file Sexual Orientation Not on file Obstetrics History Last Filed Vital Signs Vital Sign Reading Time Taken Comments Blood Pressure 112/70 08/25/2024 8:38 AM EST Pulse 78 08/25/2024 8:38 AM EST Temperature 36.1 ??C (96.9 ??F) 08/25/2024 8:38 AM ES T Respiratory Rate 16 08/25/2024 8:38 AM EST Oxygen Saturation - - Inhaled Oxygen Concentration - - Weight 94.8 kg (209 lb) 08/25/2024 8:38 AM EST Height 157.5 cm (5' 2 ) 08/25/2024 8:38 AM EST Body Mass Index 38.23 08/25/2024 8:38 AM EST Plan of Treatment Health Maintenance Due Date Last Done Comments Hepatitis B Vaccines (1 of 3 - 19+ 3-dose series) 11/30/2010 Depression Screening 05/18/2021 HIV Screening 05/18/2021 Social Influencers of Health Screening 05/18/2021 Pneumococcal Vaccine: Pediatrics (0 to 5 Years) and At-Risk Patients (6 to 64 Years) (2 of 2 - PCV) 06/23/2022 06/23/2021 COVID-19 Vaccine ( season) 2024 09/12/2021, 02/17/2021, 01/22/2021 Influenza Vaccine (Season Ended) 2025 08/24/2023, 06/05/2022, 06/23/2021, Additional history exists Cervical Cancer Screening: HPV 05/06/2026 05/06/2021 DTaP,Tdap,and Td Vaccines (2 - Td or Tdap) 09/10/2028 09/10/2018 Cholesterol Screening (Lipid Panel) 08/25/2029 08/25/2024, 09/28/2023, 09/27/2023 Hepatitis C Screening Completed 09/28/2023 HIB Vaccines Aged Out No longer eligi ble based on patient's age to complete this topic HPV Vaccines Aged Out No longer eligi ble based on patient's age to complete this topic Hepatitis A Vaccines Aged Out No long er eligible based on patient's age to complete this topic IPV Vaccines Aged Out No longer eligi ble based on patient's age to complete this topic MMR Vaccines Aged Out No longer eligi ble based on patient's age to complete this topic Meningococcal ACWY Vaccine Aged Out N o longer eligible based on patient's age to complete this topic Meningococcal B Vaccine Aged Out No l onger eligible based on patient's age to complete this topic RSV Immunization Patients Under 20 months Aged Out No longer eligible based on patient's age to complete this topic Varicella Vaccines Aged Out No longer eligible based on patient's age to complete this topic Procedures Procedure Name Priority Date/Time Associated Diagnosis Comments EXTERNAL XRAY REPORT 10/22/2024 LIPID PANEL WITH REFLEX TO DIRECT LDL Routine 08/25/2024 9:38 AM EST Physical exam Mild intermittent asthma without complication Asymptomatic varicose veins of both lower extremities Other iron deficiency anemia Obesity (BMI 35.0-39.9 without comorbidity) Vitamin D deficiency disease Screening for diabetes mellitus (DM) Screening for hyperlipidemia Screening for thyroid disorder Screening for colorectal cancer HEPATITIS C SCREENING Routine 09/28/2023 HPV Routine 05/06/2021 from Last 3 Months or Most Recently Relevant to Health Maintenance Results * External Xray Report (10/22/2024) Anatomical Region Laterality Modality Radiographic Rachel ging us Provider [facility] XR PROCEDURES Final Result * (ABNORMAL) Lipid panel with reflex to direct LDL (08/25/2024 9:38 AM EST) Cholesterol 101 0 - 200 mg/dL LAB CHEMISTRY METHOD 08/25/2024 1:53 PM EST [facility] Triglycerides 109 0 - 150 mg/dL LAB CHEMISTRY METHOD 08/25/2024 1:53 PM EST [facility] HDL 31(L) >=40 mg/dL LAB CHEMISTRY METHOD 08/25/2024 1:53 PM EST [facility] LDL Calculated 48 0 - 100 mg/dL LAB CHEMISTRY METHOD 08/25/2024 1:53 PM EST [facility] VLDL Cholesterol Franck 21.8 mg/dL LAB CHEMISTRY METHOD 08/25/2024 1:53 PM EST [facility] Non HDL Chol. (LDL+VLDL) 70 <145 mg/dL LAB CHEMISTRY METHOD 08/25/2024 1:53 PM EST [facility] Chol/HDL Ratio 3.3 0.0 - 4.4 LAB CHEMISTRY METHOD 08/25/2024 1:53 PM EST [facility] Blood Venous blood specimen / Unknown Venipuncture / Unknown 08/25/2024 9:38 AM EST 08/25/2024 9:38 AM EST Albert Urias MD LAB BLOOD ORDERABLES Final Result [facility] [address] [place] [address], [place] [phone] * Hepatitis C Screening (09/28/2023) Hepatitis C Screening Abstracted Historical Provider HEALTH MAINTENANCE Final Result * Cervical Cancer Screening: HPV (05/06/2021) Cervical Cancer Screening: HPV No Interpretation , Abstracted Historical Provider HEALTH MAINTENANCE Final Result from Last 3 Months or Most Recently Relevant to Health Maintenance Insurance MEDICAID - [place] [facility] [employer] PLAN Care Teams Ship'S Pilot Relationship Specialty Start Date End Date Albert Urias MD [address] [place] [address] PCP - General Internal Medicine 01/26/22
--- OUTSIDE RECORDS SUMMARY | 2025-01-01 20:48 | XMS_ITS | Clinical Summary ---
Author Organization [employer] [facility] Address [address] [place] [address] Care Team Providers Care Fish Machine Feeder Name Role Phone Joseline Duran MD Primary Care Provider [phone] Allergies Active Allergy Reactions Criticality Noted Date [...] age to complete this topic Care Teams Fish Machine Feeder Relationship Specialty Start Date End Date Joseline Duran MD PCP - General Internal Medicine 07/13/21
[2025-01-01 21:58] VITALS: BP 125/70; PULSE 86; RESP 16; TEMP 36.7; O2SAT 98
== END 2025-01-01 21:59 | disposition home or self-care (01) ==
PROVIDERS: Emergency Provider Internal Medicine; PCP Internal Medicine
DX: R07.89 Other chest pain (principal); R20.2 Paresthesia of skin; Z03.818 Encounter for observation for suspected exposure to other biological agents ruled out; Z79.899 Other long term (current) drug therapy
CPT/HCPCS: 0241U; 71046; 80053; 84484; 85025; 93005; 99283; 99284

== ENCOUNTER → 2025-01-01 15:53 | Outpatient (BNV) | payer OTHER, SELFPAY | PROVIDERS: Emergency Provider Internal Medicine; PCP Internal Medicine; Visit Provider Internal Medicine Cardiovascular Disease | DX: R07.9 Chest pain, unspecified (principal) | CPT/HCPCS: 93010 ==

== ENCOUNTER → 2025-01-01 17:30 | Outpatient (BNV) | payer OTHER, SELFPAY | PROVIDERS: PCP Internal Medicine; Visit Provider Radiology Diagnostic Radiology | DX: R07.9 Chest pain, unspecified (principal) | CPT/HCPCS: 71046 ==

== ENCOUNTER 2025-02-12 07:47 | Outpatient (AMB) | payer OTHER, SELFPAY ==
--- OUTSIDE RECORDS SUMMARY | 2025-02-12 07:50 | XMS_ITS | Encounter Summary ---
Author Organization [facility] Address [address] [place] [address] Care Team Providers Care Grain Elevator Man Name Role Phone Albert Urias MD Primary Care Provider Encounter Details Date Type Department Care Team ([facility] Contact Info) Description 01/12/2025 Telephone Adult [address] [phone] Albert Urias MD [address] [place] [address] Social History Tobacco Use Types Packs/Day Years [...] on file documented as of this encounter Plan of Treatment Upcoming Encounters Date Type Department Care Team (Late Contact Info) Description 04/01/2025 11:20 AM EDT Office Visit Gastroenterology - [place] [address] [facility] [address] [facility] [address] [phone] Rigoberto Juárez DO [address] [place] [address] 08/31/2025 8:30 AM EST Office Visit Adult [address] [phone] Albert Urias MD [address] [place] [address] documented as of this encounter Visit Diagnoses Not on filedocumented in this encounter Care Teams Grain Elevator Man Relationship Specialty Start Date End Date Albert Urias MD [address] [place] [address] PCP - General Internal Medicine 01/26/22 documented as of this encounter
[2025-02-12 07:52] VITALS: BP 120/72; BMI 38.2
--- NOTE | 2025-02-12 07:52 | MHC.OFFVIS ---
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 No complaints. The patient had the ultrasound done in 09/24 which showed a 4.3 cm myoma, no pelvic pressure or pain or abnormal uterine bleeding Last Pap/HPV was negative in 11/24 [facility] Medical History Asthma Anemia Surgical History Hx of cholecystectomy Family History Paternal Grandmother Colon cancer History of breast cancer Maternal Grandmother Ovarian cancer Mother Varicose vein of leg Hx of blood clots Social History Household Members: Family Housing: House Alcohol intake: current Alcohol intake frequency: holidays/special occasions only Comment: to [place] Patient Tobacco Use Status: Never used Tobacco service: No Current occupational status: employed 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 Female Reproductive History Menstrual Age of Menarche: 10 Date of last menstrual period: 01/28/25 control method: none Total pregnancies: 0 Date of last pap smear: 11/02/23 Review of Systems Const All systems reviewed & are unremarkable except as noted in HPI and below Card Reports as per HPI Resp Reports as per HPI GI Reports as per HPI and Reports no additional complaints Reports as per HPI Physical Exam Vital Signs: Last Vital Signs BP 120/72 02/12/25 07:52 BMI result Body Mass Index 38.2 Const General: cooperative, healthy appearing and comfortable Chest Chest palpation & inspection: normal inspection of the chest and normal palpation of entire chest wall Breast/axilla inspection: normal inspection of the breasts and normal inspection of the axillae Breast/axilla palpation: normal palpation of the breasts, normal palpation of the axillae and no axillary lymphadenopathy Resp Effort & Inspection: normal respiratory effort Auscultation: clear to auscultation bilaterally Percussion: percussion normal Cardio Palpation: normal PMI Rate: regular rate Rhythm: regular rhythm Heart sounds: no murmurs and no rubs Peripheral pulses: Peripheral pulses 2+ throughout GI Inspection: Yes normal to inspection Palpation (GI): Soft to palpation, nontender, no guarding, not rigid and No hepatosplenomegaly present Percussion: Yes normal to percussion Auscultation: normal bowel sounds Rectal Exam - Female: deferred General: Yes bladder normal to palpation External Female Exam: No lesion Speculum Exam - Vagina: normal appearance of the vagina, normal palpation, normal vaginal discharge and not erythematous Speculum Exam - Cervix: normal appearance of the cervix and normal palpation Bimanual exam- vagina & uterus: normal bimanual exam, normal palpation, uterine size normal, bladder normal to palpation, consistency normal and normal palpation Bimanual Exam- Adnexa, other: normal adnexae, no masses and no tenderness Assessment & Plan Assessment & Plan (1) Well woman exam: Code(s): Z01.419 - Encounter for gynecological examination (general) (routine) without abnormal findings Category: Medical Plan: Cotesting not indicated this year. Counseled the patient about the recommended dietary allowance of 1000 mg of Calcium & 600 IU of vitamin D. The patient was instructed to perform monthly self-breast exams and to schedule an annual exam in a year; All questions answered and the patient verbalized understanding. Instructed the patient to schedule annual exam in a year (2) Uterine myoma: Code(s): D25.9 - Leiomyoma of uterus, unspecified Category: Medical Plan: Pelvic ultrasound ordered, instructions given the patient to schedule an ultrasound and a follow-up appointment within 2 weeks. All questions answered, the patient verbalized understanding Orders: Orders US pelvic and transvaginal Today D25.9 - Leiomyoma of uterus, unspecified Coding Level of Care Code Est Pt Prev Care 18-39y([id number]) Diagnoses Well woman exam Z01.419 Uterine myoma D25.9
== END 2025-02-12 08:46 | disposition home or self-care (01) ==
LOC: HO.HWS 07:47
PROVIDERS: PCP Internal Medicine; Visit Provider Obstetrics & Gynecology
DX: Z01.419 Encounter for gynecological examination (general) (routine) without abnormal findings (principal); D25.9 Leiomyoma of uterus, unspecified
CPT/HCPCS: 99395; 99459

== ENCOUNTER → 2025-02-12 07:47 | Outpatient (BNVA) | payer OTHER, SELFPAY | PROVIDERS: PCP Internal Medicine; Visit Provider Obstetrics & Gynecology | DX: Z01.419 Encounter for gynecological examination (general) (routine) without abnormal findings (principal) | CPT/HCPCS: 99395; 99459 ==

== ENCOUNTER 2025-03-19 15:50 | Outpatient (REF) | payer OTHER, SELFPAY ==
--- NOTE | ~2025-03-19 | US_ITS ---
EXAMINATION: US PELVIS CLINICAL INFORMATION: D25.9 - Leiomyoma of uterus, unspecified COMPARISON: September 26, 2021 TECHNIQUE: Ultrasound of the pelvis is performed using both transabdominal and transvaginal transducers along with Doppler. Transvaginal imaging is performed due to inadequate visualization transabdominally. FINDINGS: Uterus: The uterus measures 9.6 x 5.6 x 5.5 cm. The double wall endometrial thickness is 7 mm. The uterus is smooth in contour and demonstrates areas of heterogeneity. Uterine leiomyoma Anterior fundal intramural and partially submucosal; measures 1.5 x 1.3 x 1.5 cm, previously 2.2 x 2.1 x 2.1. Intramural possibly extending submucosal fundal: 1.1 x 0.8 x 0.9. Not appreciably previously Left uterine body, intramural: 1.0 x 1.1 x 1.4 cm, not appreciated previously. Adnexa: Both ovaries are visualized. There is normal color flow to the adnexa. There is no ovarian torsion. There is no pelvic ascites or fluid collection. Right ovary measures 3.2 x 1.8 x 2.0 cm. Left ovary measures 3.5 x 1.6 x 2.0 cm. US/US pelvic and transvaginal IMPRESSION: Again seen are multiple uterine leiomyomas, not clearly enlarging. Electronically signed by: Douglas Mcculloguh MD 03/19/2025 05:48 PM EDT
--- OUTSIDE RECORDS SUMMARY | 2025-03-19 16:17 | XMS_ITS | Clinical Summary ---
Author Organization Patient Business Ser [facility] [place] Address [address] [place] [address] Care Team Providers Care Entry Operator Name Role Phone Albert Urias MD Primary Care Provider Allergies Active Allergy Reactions Criticality Noted Date Comments Apple Itching 07/16/2019 Oral allergy Kiwi (Actinidia Chinensis) Itching 9 Oral allergy Pear Itching 07/16/2019 Oral allergy Medications ibuprofen-acet aminophen (AdviL Dual Action) 125-250 mg tablet Take 2 Tablets by mouth 2 times daily as needed. Active magnesium oxide (MAG-OX) 400 mg magnesium tablet Take 1 tablet (400 mg total) by mouth 1 (one) time each day. 90 tablet 1 08/25/20 24 Active loratadine (CLARITIN) 10 mg tablet Take 1 tablet (10 mg total) by mouth 1 (one) time each day. 90 tablet 1 02/06/20 25 Active fluticasone propionate (FLONASE) 50 mcg/actuation nasal spray Administer 1 spray into each nostril 1 (one) time each day. Shake gently. Before first use, prime pump. After use, clean tip and replace cap. 16 g 1 02/06/20 25 Active polyethylene glycol (MIRALAX) 17 gram packet Take 17 g by mouth 1 (one) time each day. 1530 g 1 02/06/20 25 Active cholecalcifero l (Vitamin D3) 50 mcg (2,000 unit) capsule Take 1 capsule (2,000 Units total) by mouth 1 (one) time each day. 90 capsule 02/07/20 25 Active ferrous sulfate 325 mg (65 mg elemental iron) tablet TAKE 1 TABLET (325 MG TOTAL) BY MOUTH 3 (THREE) TIMES A WEEK. DO NOT CRUSH, CHEW, OR SPLIT. 36 tablet 1 03/03/20 25 Active ferrous sulfate 325 mg (65 mg iron) EC tablet Take 1 tablet (325 mg total) by mouth 3 (three) times a week. Do not crush, chew, or split. 90 each 08/25/20 24 025 Discontinued Active Problems Problem Noted Date Diagnosed Date [...] Encounters Date Type Department Care Team Description 02/05/2025 11:00 AM EDT Office Visit Adult Medicine [address] [phone] Isa He PA Constipation, unspecified constipation type (Primary Dx); Family history of colon cancer; Other iron deficiency anemia; Chronic RUQ pain; Vitamin D deficiency disease; Seasonal allergic rhinitis due to pollen; Atypical chest pain 01/12/2025 Telephone Adult Medicine [address] [phone] Albert Urias MD 12/31/2024 Telephone Adult Medicine [address] [phone] Albert Urias MD Chest Pain from Last 3 Months Immunizations Name Administration Dates Next Due Influenza Quadravalent, MDCK , 0.5ml, preservative free (Flucelvax) 6mo and older 08/24/2023,06/23/2021,07/09/2019 Influenza, Unspecified 06/05/2022 PPD Test 01/26/2016 Pfizer SARS-CoV-2 COVID-19, mRNA, LNP-S, preservative free 02/17/2021,01/22/2021 Pneumococcal polysaccharide 23 valent (Pneumovax 23) 2yo and older 06/23/2021 Tdap Tetanus diptheria acell ular pertussis (Boostrix; Adacel) 7yo and older 09/10/2018 Surgical History Surgery Date Site/Laterality Comments CHOLECYSTECTOMY PROCEDURE: HISTORICAL CHOLECYSTECTOMY OTHER SURGICAL HISTORY PROCEDURE: [place] MYOMECTOMY 1-4 MYOMAS W/250 GM/< ABDOMINAL APPR CHOLECYSTECTOMY PROCEDURE: [place] LAPAROSCOPY SURG CHOLECYSTECTOMY Medical History Medical History [...] Date Smoking Tobacco: Never Smokeless Tobacco: Never Tobacco Cessation:Counseling Given: Not Answered Alcohol Use Standard Drinks/Week Comments No 0 (1 standard drink = 0.6 oz pur e alcohol) Comments No Sex and Gender Information Value Date Recorded Sex Assigned at Not on file Legal Sex Female 8:02 AM EDT Gender Identity Not on file Sexual Orientation Not on file Obstetrics History Last Filed Vital Signs Vital Sign Reading Time Taken Comments Blood Pressure 117/87 02/05/2025 10:52 AM EDT Pulse 85 02/05/2025 10:52 AM EDT Temperature 36.4 C (97.6 F) 02/05/2025 10:52 AM EDT Respiratory Rate 14 02/05/2025 10:52 AM EDT Oxygen Saturation - - Inhaled Oxygen Concentration - - Weight 92.5 kg (204 lb) 02/05/2025 10:52 AM EDT Height 157.5 cm (5' 2 ) 02/05/2025 10:52 AM EDT Body Mass Index 37.31 02/05/2025 10:52 AM EDT Plan of Treatment Upcoming Encounters Date Type Department Care Team (Late st Contact Info) Description 04/01/2025 11:20 AM EDT Office Visit Gastroenterology - [place] 175 [facility] [address] [phone] Rigoberto Juárez DO 175 [facility] 200 [place] [address] 08/31/2025 8:30 AM EST Office Visit Adult Medicine [address] [phone] Albert Urias MD [address] [place] [id number] Health Maintenance Due Date Last Done Comments Hepatitis B Vaccines (1 of 3 - 19+ 3-dose series) 11/30/2010 Depression Screening 05/18/2021 HIV Screening 05/18/2021 Social Influencers of Health Screening 05/18/2021 Pneumococcal Vaccine: Pediatrics (0 to 5 Years) and At-Risk Patients (6 to 49 Years) (2 of 2 - PCV) 06/23/2022 06/23/2021 COVID-19 Vaccine ( - season) 2024 09/12/2021, 02/17/2021, 01/22/2021 Influenza Vaccine (#1) 2025 3, 06/05/2022, 06/23/2021, Additional history exists Cervical Cancer [...] Procedure Name Priority Date/Time Associated Diagnosis Comments CBC WITH AUTO DIFFERENTIAL Routine 02/05/2025 11:37 AM EDT Constipation, unspecified constipation type Family history of colon cancer Other iron deficiency anemia CBC AND DIFFERENTIAL Routine 02/05/2025 11:37 AM EDT Constipation, unspecified constipation type Family history of colon cancer Other iron deficiency anemia VITAMIN D 25 HYDROXY Routine 02/05/2025 11:37 AM EDT Constipation, unspecified constipation type Family history of colon cancer Other iron deficiency anemia LIPID PANEL WITH REFLEX TO DIRECT LDL Routine 08/25/2024 9:38 AM EST Physical exam Mild intermittent asthma without complication Asymptomatic varicose veins of both lower extremities Other iron deficiency anemia Obesity (BMI 35.0-39.9 without comorbidity) Vitamin D deficiency disease Screening for diabetes mellitus (DM) Screening for hyperlipidemia Screening for thyroid disorder Screening for colorectal cancer HM HEPATITIS C SCREENING Routine 09/28/2023 HPV Routine 05/06/2021 from Last 3 Months or Most Recently Relevant to Health Maintenance Results * CBC auto differential (02/05/2025 11:37 AM EDT) [facility] WBC 7.0 4.8 - 10.8 K/mcL LAB [facility] RBC 4.40 3.80 - 4.80 M/mcL LAB HEMETOLOGY METHOD [facility] Hemoglobin 13.4 11.5 - 16.0 g/dL LAB HEMETOLOGY METHOD 02/05/2025 2:19 PM [facility] Hematocrit 41.4 35.0 - 47.0 % LAB HEMETOLOGY METHOD [facility]05[facility]2025 2[facility] MCV 93.9 79.0 - 98.0 FL LAB HEMETOLOGY METHOD 02/05/2025 2:19 PM [facility] MCH 30.4 27.0 - 32.0 pcg LAB HEMETOLOGY METHOD 02/05/2025 2:19 PM [facility] MCHC 32.4 32.0 - 37.0 g/dL LAB HEMETOLOGY METHOD 02/05/2025 2:19 PM [facility] RDW 11.9 11.0 - 15.0 % LAB HEMETOLOGY METHOD 02/05/2025 2:19 PM [facility] Platelets 389 130 - 400 K/mcL LAB HEMETOLOGY METHOD 02/05/2025 2:19 PM [facility] MPV 9.8 7.0 - 11.0 FL LAB HEMETOLOGY METHOD 02/05[facility]2025 2:[facility] NRBC 0.0 <1.0 % LAB HEMETOLOGY METHOD 02/05/2025 2:19 PM [facility] NRBC Absolute 0.00 <0.10 K/mcL LAB HEMETOLOGY METHOD 02/05/2025 2:19 PM [facility] Neutrophils Relative 67.3 % LAB HEMETOLOGY METHOD 02/05/2025 2:19 PM [facility] Lymphocytes Relative 24.9 % LAB HEMETOLOGY METHOD 02/05/2025 2:19 PM [facility] Monocytes Relative 4.7 % LAB HEMETOLOGY METHOD 02/05/2025 2:19 PM [facility] Eosinophils Relative 1.4 % LAB HEMETOLOGY METHOD 02/05/2025 2:19 PM [facility] Basophils Relative 1.4 % LAB HEMETOLOGY METHOD 02/05/2025 2:19 PM [facility] Immature Granulocytes Relative 0.3 % LAB HEMETOLOGY METHOD 02/05/2025 2:19 PM [facility] Neutrophils Absolute 4.74 1.50 - 7.00 K/mcL LAB HEMETOLOGY METHOD 02/05/2025 2:19 PM [facility] Lymphocytes Absolute 1.75 1.00 - 5.00 K/mcL LAB HEMETOLOGY METHOD 02/05/2025 2:19 PM [facility] Monocytes Absolute 0.33 0.20 - 1.00 K/mcL LAB HEMETOLOGY METHOD 02/05/2025 2:19 PM [facility] Eosinophils Absolute 0.10 0.00 - 0.50 K/mcL LAB HEMETOLOGY METHOD 02/05/2025 2:19 PM [facility] Basophils Absolute 0.10 0.00 - 0.20 K/mcL LAB HEMETOLOGY METHOD 02/05/2025 2:19 PM EDT [facility] Immature Granulocytes Absolute 0.02 0.00 - 0.03 K/mcL LAB HEMETOLOGY METHOD 02/05/2025 2:19 PM EDT [facility] Blood Venous blood specimen / Unknown Venipuncture / Unknown 02/05/2025 11:37 AM EDT 02/05/2025 11:37 AM EDT [facility] Sofia Virgendeirdre He NM LAB BLOOD ORDERABLES Fin al Result Performing Organization Address City/[facility]/ZIP Co de Phone Number [facility] [address] [place] [address], [place] [phone] * (ABNORMAL) Vitamin D 25 hydroxy (02/05/2025 11:37 AM EDT) Vit D, 25-Hydroxy 26.6(L) 30.0 - 80.0 ng/mL LAB CHEMISTRY METHOD 02/05/2025 2:47 PM EDT [facility] Blood Venous blood specimen / Unknown Venipuncture / Unknown 02/05/2025 11:37 AM EDT 02/05/2025 11:37 AM EDT [facility] MontesinosSofiagallito LEMA LAB BLOOD ORDERABLES Fin al Result Performing Organization Address City/[facility]/ZIP Co de Phone Number [facility] [address] [place] [address], [place] [phone] * (ABNORMAL) Lipid panel with reflex to direct LDL (08/25/2024 9:38 AM EST) Cholesterol 101 0 - 200 mg/dL LAB CHEMISTRY METHOD 08/25/2024 1:53 PM EST [facility] Triglycerides 109 0 - 150 mg/dL LAB CHEMISTRY METHOD 08/25/2024 1:53 PM EST [facility] HDL 31(L) >=40 mg/dL LAB CHEMISTRY METHOD 08/25/2024 1:53 PM EST [facility] LDL Calculated 48 0 - 100 mg/dL LAB CHEMISTRY METHOD 08/25/2024 1:53 PM EST [facility] VLDL Cholesterol Franck 21.8 mg/dL LAB CHEMISTRY METHOD 08/25/2024 1:53 PM [facility] Non HDL Chol. (LDL+VLDL) 70 <145 mg/dL LAB CHEMISTRY METHOD 08/25/2024 1:53 PM [facility] Chol/HDL Ratio 3.3 0.0 - 4.4 LAB CHEMISTRY METHOD 08/25/2024 1:53 PM [facility] Blood Venous blood specimen / Unknown Venipuncture / Unknown 08/25/2024 9:38 AM EST 08/25/2024 9:38 AM EST Albert Urias MD LAB BLOOD ORDERABLES Final Result [facility] [address] [place] [address], * Hepatitis C Screening (09/28/2023) [facility] Hepatitis C Screening Abstracted [facility] Provider HEALTH MAINTENANCE Final Result * Cervical Cancer Screening: HPV (05/06/2021) [facility] Cervical Cancer Screening: HPV No Interpretation , Abstracted Historical Provider HEALTH MAINTENANCE Final Result from Last 3 Months or Most Recently Relevant to Health Maintenance Insurance MEDICAID - [place] [facility] Care Teams Entry Operator Relationship Specialty Start Date End Date Albert Urias MD [address] [place] [address] PCP - General Internal Medicine 01/26/22
== END 2025-03-19 15:51 | disposition home or self-care (01) ==
LOC: HO.US 15:50
PROVIDERS: PCP Internal Medicine; Visit Provider Obstetrics & Gynecology
DX: D25.9 Leiomyoma of uterus, unspecified (principal)
CPT/HCPCS: 76830; 76856

== ENCOUNTER → 2025-03-19 15:51 | Outpatient (BNV) | payer OTHER, SELFPAY | PROVIDERS: PCP Internal Medicine; Visit Provider Radiology Diagnostic Radiology | DX: D25.9 Leiomyoma of uterus, unspecified (principal) | CPT/HCPCS: 76830; 76856 ==

== ENCOUNTER 2025-04-30 12:11 | Outpatient (AMB) | payer OTHER, SELFPAY ==
--- NOTE | 2025-04-30 12:11 | A.OFFVIS_ITS ---
Intake Visit Reasons: TV US follow up Allergies apple Allergy (Verified 02/12/25 07:55) Itching HPI Comments Details: The patient is scheduled a telehealth visit for follow-up ultrasound regarding uterine myoma seen on previous pelvic ultrasound. The patient is doing well with no complaints no abnormal uterine bleeding, pelvic pressure or pain. Pelvic ultrasound done recently showed the following: Uterus: The uterus measures 9.6 x 5.6 x 5.5 cm. The double wall endometrial thickness is 7 mm. The uterus is smooth in contour and demonstrates areas of heterogeneity. Uterine leiomyoma Anterior fundal intramural and partially submucosal; measures 1.5 x 1.3 x 1.5 cm, previously 2.2 x 2.1 x 2.1. Intramural possibly extending submucosal fundal: 1.1 x 0.8 x 0.9. Not appreciably previously Left uterine body, intramural: 1.0 x 1.1 x 1.4 cm, not appreciated previously. Adnexa: Both ovaries are visualized. There is normal color flow to the adnexa. There is no ovarian torsion. There is no pelvic ascites or fluid collection. Right ovary measures 3.2 x 1.8 x 2.0 cm. Left ovary measures 3.5 x 1.6 x 2.0 cm. US/US pelvic and transvaginal IMPRESSION: Again seen are multiple uterine leiomyomas, not clearly enlarging. 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 Female Reproductive History Menstrual Age of Menarche: 10 Review of Systems Const All systems reviewed & are unremarkable except as noted in HPI and below Reports as per HPI and Reports no additional complaints GI Reports no additional complaints Reports no additional complaints Telehealth Tele[facility] Location of provider rendering services: practice address Location of patient: address on file Patient Identification confirmed using: Name, : Yes Telehealth method: voice only Patient verbally consented to treatment: Yes Patient verbally consented to billing insurance company: Yes Patient informed of any privacy concerns related to visit: Yes Minutes spent on Phone/Video with Pt.: 4 Assessment & Plan Assessment & Plan (1) Uterine myoma: Code(s): D25.9 - Leiomyoma of uterus, unspecified Category: Medical Plan: Discussed with the patient the findings on pelvic ultrasound & the risk of myosarcoma; in addition reviewed with the patient that malignancy and pre malignancy cannot be ruled out without hysterectomy for pathological evaluation ; furthermore, explained to the patient the limitation of pelvic ultrasound and endometrial biopsy in the setting. Discussed with the patient the options of treatment including expectant management versus hysterectomy; the pros and cons, risks benefits of each approach were discussed with the patient including the fact that in cases of myosarcoma, surgical treatment can lead to early diagnosis and positively affects the prognosis; after further discussion, the patient decided to proceed with expectant management. Will repeat pelvic ultrasound periodically. Instructions given to patient to call in case any of the following occurs: pressure symptoms, abnormal uterine bleeding, pelvic pain; and to schedule a 12 months pelvic ultrasound (order placed) and a follow-up appointment . All questions answered, the patient verbalized understanding and agreed with the plan . I spent a total of 20 minutes reviewing the chart, talking to the patient via phone and documenting in the medical record. Orders: Orders US pelvic and transvaginal 12 Months D25.9 - Leiomyoma of uterus, unspecified Coding Level of Care Code Tele Est Pt Level 3 (16943) Diagnoses Uterine myoma D25.9
--- OUTSIDE RECORDS SUMMARY | 2025-04-30 13:09 | XMS_ITS | Clinical Summary ---
Author Organization [facility] Address [address] [place] [address] Care Team Providers Care Associate Software Development Engineer Name Role Phone Albert Urias MD Primary [...] each day. 90 tablet 1 4 Active loratadine (CLARITIN) 10 mg tablet Take 1 tablet (10 mg total) by mouth 1 (one) time each day. 90 tablet 1 5 Active fluticasone propionate (FLONASE) 50 mcg/actuation nasal spray Administer 1 spray into each nostril 1 (one) time each day. Shake gently. Before first use, prime pump. After use, clean tip and replace cap. 16 g 1 5 Active polyethylene glycol (MIRALAX) 17 gram packet Take 17 g by mouth 1 (one) time each day. 1530 g 1 5 Active cholecalciferol (Vitamin D3) 50 mcg (2,000 unit) capsule Take 1 capsule (2,000 Units total) by mouth 1 (one) time each day. 90 capsule 5 Active ferrous sulfate 325 mg (65 mg elemental iron) tablet TAKE 1 TABLET (325 MG TOTAL) BY MOUTH 3 (THREE) TIMES A WEEK. DO NOT CRUSH, CHEW, OR SPLIT. 36 tablet 1 Active Active Problems Problem Noted Date Diagnosed [...] 11:00 AM EDT Office Visit Adult Medicine [address] [phone] Isa He PA Constipation, unspecified constipation type (Primary Dx); Family history of colon cancer; Other iron deficiency anemia; Chronic RUQ pain; Vitamin D deficiency disease; Seasonal allergic rhinitis due to pollen; Atypical chest pain from Last 3 Months Immunizations Name Administration Dates Next Due Influenza Quadravalent, MDCK , 0.5ml, preservative free (Flucelvax) 6mo and older 08/24/2023,06/23/2021,07/09/2019 Influenza, Unspecified 06/05/2022 PPD Test 01/26/2016 SP[employer] SARS-CoV-2 COVID-19, mRNA, LNP-S, preservative free 02/17/2021,01/22/2021 Pneumococcal polysaccharide 23 valent (Pneumovax 23) 2yo and older 06/23/2021 Tdap Tetanus diptheria acell ular pertussis (Boostrix; Adacel) 7yo and older 09/10/2018 Surgical History Surgery Date Site/Laterality Comments CHOLECYSTECTOMY PROCEDURE: HISTORICAL CHOLECYSTECTOMY OTHER SURGICAL HISTORY PROCEDURE: MS MYOMECTOMY 1-4 MYOMAS W/250 GM/< ABDOMINAL APPR CHOLECYSTECTOMY PROCEDURE: MS LAPAROSCOPY SURG CHOLECYSTECTOMY Medical History Medical History [...] Care Team (Late st Contact Info) Description 06/24/2025 9:00 AM EDT Office Visit Gastroenterology - [place] [address] [facility] [address] [place] [phone] Vipin Rojo MD [address] [place] [address] 08/31/2025 8:30 AM EST Office Visit Adult Medicine [facility] [address] [place] [address] Albert Urias MD [address] [place] [address] Health Maintenance Due Date Last Done Comments Hepatitis B Vaccines (1 of 3 - 19+ 3-dose series) 11/30/2010 HIV Screening 05/18/2021 Social Influencers of Health Screening 05/18/2021 Pneumococcal Vaccine: Pediatrics (0 to 5 Years) and At-Risk Patients (6 to 49 Years) (2 of 2 - PCV) 06/23/2022 06/23/2021 COVID-19 Vaccine ( - 2023- season) 2024 09/12/2021, 02/17/2021, 01/22/2021 Depression Screening 09/03/2024 Influenza Vaccine (#1) 2025 , 06/05/2022, 06/23/2021, Additional history exists Cervical Cancer [...] Name Priority Date/Time Associated Diagnosis Comments EXTERNAL ULTRASOUND REPORT 03/19/2025 EXTERNAL ULTRASOUND REPORT 03/19/2025 CBC WITH AUTO DIFFERENTIAL Routine 02/05/2025 11:37 [...] Relevant to Health Maintenance Results * External Ultrasound Report (03/19/2025) Only the most recent of2 resultswithin the time period is included. Anatomical Region Laterality Modality Ultrasound us Provider [facility] IMG US PROCEDURES Final Result * CBC auto differential (02/05/2025 11:37 AM EDT) WBC 7.0 4.8 - 10.8 K/mcL LAB HEMETOLOGY METHOD 02/05/2025 2:19 PM [facility] RBC 4.40 3.80 - 4.80 M/mcL LAB HEMETOLOGY METHOD 02/05/2025 2:19 PM [facility] Hemoglobin 13.4 11.5 - 16.0 g/dL LAB HEMETOLOGY METHOD 02/05/2025 2:19 PM [facility] Hematocrit 41.4 35.0 - 47.0 % LAB HEMETOLOGY METHOD 02/05/2025 2:19 PM [facility] MCV 93.9 79.0 - 98.0 FL LAB HEMETOLOGY METHOD 02/05/2025 2:19 PM [facility] MCH 30.4 27.0 - 32.0 pcg LAB HEMETOLOGY METHOD 02/05/2025 2:19 PM [facility] MCHC 32.4 32.0 - 37.0 g/dL LAB HEMETOLOGY METHOD 02/05/2025 2:19 PM [facility] RDW 11.9 11.0 - 15.0 % LAB HEMETOLOGY METHOD 02/05/2025 2:19 PM [facility] Platelets 389 130 - 400 K/mcL LAB HEMETOLOGY METHOD 02/05/2025 2:19 PM [facility] MPV 9.8 7.0 - 11.0 FL LAB HEMETOLOGY METHOD 02/05/2025 2:19 PM [facility] NRBC 0.0 <1.0 % LAB HEMETOLOGY METHOD 02/05/2025 2:19 PM [facility] NRBC Absolute 0.00 <0.10 K/mcL LAB HEMETOLOGY METHOD 02/05/2025 2:19 PM [facility] Neutrophils Relative 67.3 % LAB HEMETOLOGY METHOD 02/05/2025 2:19 PM [facility] Lymphocytes Relative 24.9 % LAB HEMETOLOGY METHOD 02/05/2025 2:19 PM [facility] Monocytes Relative 4.7 % LAB HEMETOLOGY METHOD 02/05/2025 2:19 PM [facility] Eosinophils Relative 1.4 % LAB HEMETOLOGY METHOD 02/05/2025 2:19 PM [facility] Basophils Relative 1.4 % LAB HEMETOLOGY METHOD 02/05/2025 2:19 PM [facility] Immature Granulocytes Relative 0.3 % LAB HEMETOLOGY METHOD 02/05/2025 2:19 PM [facility] Neutrophils Absolute 4.74 1.50 - 7.00 K/mcL LAB HEMETOLOGY METHOD 02/05/2025 2:19 PM [facility] Lymphocytes Absolute 1.75 1.00 - 5.00 K/mcL LAB HEMETOLOGY METHOD 02/05/2025 2:19 PM [facility] Monocytes Absolute 0.33 0.20 - 1.00 K/mcL LAB HEMETOLOGY METHOD 02/05/2025 2:19 PM [facility] Eosinophils Absolute 0.10 0.00 - 0.50 K/mcL LAB HEMETOLOGY METHOD 02/05/2025 2:19 PM [facility] Basophils Absolute 0.10 0.00 - 0.20 K/mcL LAB HEMETOLOGY METHOD 02/05/2025 2:19 PM [facility] Immature Granulocytes Absolute 0.02 0.00 - 0.03 K/mcL LAB HEMETOLOGY METHOD 02/05/2025 2:19 PM [facility] Blood Venous blood specimen / Unknown Venipuncture / Unknown 02/05/2025 11:37 AM EDT 02/05/2025 11:37 AM EDT Isa LEMA LAB BLOOD ORDERABLES Fin al Result Performing Organization Address City/[facility]/ZIP Co de Phone Number [facility] [address] [place] [address], [place] [phone] * (ABNORMAL) Vitamin D 25 hydroxy (02/05/2025 11:37 AM EDT) [facility] Vit D, 25-Hydroxy 26.6(L) 30.0 - 80.0 ng/mL LAB CHEMISTRY METHOD 02/05/2025 2:47 PM EDT [facility] Blood Venous blood specimen / Unknown Venipuncture / Unknown 02/05/2025 11:37 AM EDT 02/05/2025 11:37 AM EDT Isa Sofia LEMA LAB BLOOD ORDERABLES Fin al Result Performing Organization Address [facility]/ZIP Co de Phone Number [facility] [address] [place] [address], [place] [phone] * (ABNORMAL) Lipid panel with reflex to direct LDL (08/25/2024 9:38 AM EST) [facility] Cholesterol 101 0 - 200 mg/dL LAB CHEMISTRY METHOD 08/25/2024 1:53 PM EST [facility] Triglycerides 109 0 - 150 mg/dL LAB CHEMISTRY METHOD 08/25/2024 1:53 PM EST [facility] HDL 31(L) >=40 mg/dL LAB CHEMISTRY METHOD 08/25/2024 1:53 PM EST [facility] LDL Calculated 48 0 - 100 mg/dL LAB CHEMISTRY METHOD 08/25/2024 1:53 PM EST [facility] VLDL Cholesterol Franck 21.8 mg/dL LAB CHEMISTRY METHOD 08/25/2024 1:53 PM EST [facility] Non HDL Chol. (LDL+VLDL) 70 <145 mg/dL LAB CHEMISTRY METHOD 08/25/2024 1:53 PM EST [facility] Chol/HDL Ratio 3.3 0.0 - 4.4 LAB CHEMISTRY METHOD 08/25/2024 1:53 PM EST [facility] Blood Venous blood specimen / Unknown Venipuncture / Unknown 08/25/2024 9:38 AM EST 08/25/2024 9:38 AM EST Albert Urias MD LAB BLOOD ORDERABLES Final Result [facility] [address] [place] [address], * Hepatitis C Screening (09/28/2023) Pathologist [facility] Hepatitis C Screening Abstracted Historical Provider HEALTH MAINTENANCE Final Result * Cervical Cancer Screening: HPV (05/06/2021) Pathologist [facility] Cervical Cancer Screening: HPV No Interpretation , Abstracted Historical Provider HEALTH MAINTENANCE Final Result from Last 3 Months or Most Recently Relevant to Health Maintenance Insurance [place]ICA[place] - [place] [employer] Care Teams Associate Software Development Engineer Relationship Specialty Start Date End Date Albert Urias MD [address] [place] [address] PCP - General Internal Medicine 01/26/22
--- OUTSIDE RECORDS SUMMARY | 2025-04-30 13:09 | XMS_ITS ---
Author Name [facility] Organization Unknown Care Team Organization Name Specialty Phone Email Start Date End Da te [facility] Albert Urias Primary Care 01/08/202304/03 [facility] Brady Fonseca Primary Care 09/11/2022 024 [facility] Renee Primary Care 07/11/2022 04/21/2024
--- OUTSIDE RECORDS SUMMARY | 2025-04-30 13:09 | XMS_ITS | Clinical Summary ---
Author Organization [facility] Address [address] [place] [address] Care Team Providers Care Paste Up Worker Name Role Phone Joseline Duran MD Primary Care Provider [phone] Allergies Active Allergy Reactions Criticality Noted Date [...] 83 05/15/2022 11:30 AM EDT Temperature 36.6 C (97.9 F) 05/15/2022 11:30 AM EDT Respiratory Rate 18 04/03/2022 2:08 PM EDT [...] Cancer Screening (Pap Smear) 11/30/2012 COVID-19 Vaccine (3 2023-2 5 season) 2024 02/17/2021, 01/22/2021 Influenza Vaccine (#1) 2025 , 07/09/2019 DTap / Tdap / Td (2 - Td or Tdap) 09/10/2028 09/10/2018 Pneumococcal Vaccine Aged Out 06/23/2021 No long er eligible based on patient's age to complete this topic RSV Ped < 20 months Aged Out No longe r eligible based on patient's age to complete this topic Care Teams Paste Up Worker Relationship Specialty Start Date End Date Joseline Duran MD PCP - General Internal Medicine 07/13/21
== END 2025-04-30 12:25 | disposition home or self-care (01) ==
LOC: HO.HWS 12:11
PROVIDERS: PCP Internal Medicine; Visit Provider Obstetrics & Gynecology
DX: D25.9 Leiomyoma of uterus, unspecified (principal)
CPT/HCPCS: 99213

== ENCOUNTER 2025-07-16 16:56 | Emergency (ER) | payer OTHER, SELFPAY ==
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
[2025-07-16 17:03] VITALS: BP 119/73; PULSE 71; RESP 16; TEMP 36.7; O2SAT 98; BMI 38.7
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
[2025-07-16 20:07] VITALS: BP 114/55; PULSE 62; RESP 16; TEMP 36.8; O2SAT 100
--- OUTSIDE RECORDS SUMMARY | 2025-07-16 20:23 | XMS_ITS | Clinical Summary ---
Author Organization Patient Business Ser [facility] Address [address] [place] [address] Care Team Providers Care Gravity Prospector Name Role Phone Albert Urias MD Primary [...] (one) time each day. 90 tablet 1 08/25/2024 Active loratadine (CLARITIN) 10 mg tablet Take 1 tablet (10 mg total) by mouth 1 (one) time each day. 90 tablet 1 02/05/2025 Active polyethylene glycol (MIRALAX) 17 gram packet Take 17 g by mouth 1 (one) time each day. 1530 g 1 02/05/2025 Active ferrous sulfate 325 mg (65 mg elemental iron) tablet TAKE 1 TABLET (325 MG TOTAL) BY MOUTH 3 (THREE) TIMES A WEEK. DO NOT CRUSH, CHEW, OR SPLIT. 36 tablet 1 03/03/2025 Active cholecalciferol (VITAMIN D-3) 50 mcg (2,000 unit) capsule TAKE 1 CAPSULE (2,000 UNITS TOTAL) BY MOUTH ONCE DAILY 90 capsule 1 05/12/2025 Active fluticasone propionate (FLONASE) 50 mcg/actuation nasal spray INSTILL 1 SPRAY INTO EACH NOSTRIL 1 TIME PER DAY. SHAKE GENTLY. AFTER USE, CLEAN TIP AND REPLACE CAP 16 mL 1 05/18/2025 Active Active Problems Problem Noted Date Diagnosed [...] 07/16/2019 Gastroesophageal reflux disease with esophagitis 08/15/2017 Immunizations Immunization Administration Dates Next Due Influenza Quadravalent, MDCK , 0.5ml, preservative free (Flucelvax) 6mo and older 08/24/2023,06/23/2021,07/09/2019 Influenza, Unspecified 06/05/2022 PPD Test 01/26/2016 [employer] SARS-CoV-2 COVID-19, mRNA, LNP-S, preservative free 02/17/2021,01/22/2021 Pneumococcal polysaccharide 23 valent (Pneumovax 23) 2yo and older 06/23/2021 Tdap Tetanus diptheria acell ular pertussis (Boostrix; Adacel) 7yo and older 09/10/2018 Surgical History Surgery Date Site/Laterality Comments CHOLECYSTECTOMY PROCEDURE: HISTORICAL CHOLECYSTECTOMY OTHER SURGICAL HISTORY PROCEDURE: AR MYOMECTOMY 1-4 MYOMAS W/250 GM/< ABDOMINAL APPR CHOLECYSTECTOMY PROCEDURE: AR LAPAROSCOPY SURG CHOLECYSTECTOMY Medical History Medical History [...] Care Team (Late st Contact Info) Description 08/31/2025 8:30 AM EST Office Visit Adult Medicine [address] [phone] Albert Urias MD [address] [place] [address] 09/23/2025 1:40 PM EST Consult Gastroenterology - [address] [facility] [address] [place] [id number] Vipin Rojo MD [address] [address] Health Maintenance Due Date Last Done Comments Hepatitis B Vaccines (1 of 3 - 19+ 3-dose series) 11/30/2010 HPV Vaccines (1 - 3-dose SCDM series) 11/30/2018 HIV Screening 05/18/2021 Social Influencers of Health Screening 05/18/2021 Pneumococcal Vaccine: Pediatrics (0 to 5 Years) and At-Risk Patients (6 to 49 Years) (2 of 2 - PCV) 06/23/2022 06/23/2021 Depression Screening 09/03/2024 COVID-19 Vaccine ( - 2024- season) 2025 09/12/2021, 02/17/2021, 01/22/2021 Influenza Vaccine (#1) 2025 , 06/05/2022, 06/23/2021, Additional history exists Cervical Cancer Screening: HPV 05/06/2026 05/06/2021 DTaP,Tdap,and Td Vaccines (2 - Td or Tdap) 09/10/2028 09/10/2018 Cholesterol Screening (Lipid Panel) 08/25/2029 08/25/2024, 09/28/2023, 09/27/2023 RSV Immunization Adult Patients (1 - 1-dose 75+ series) 11/30/2066 Hepatitis C Screening Completed 09/28/2023 HIB Vaccines [...] Procedure Name Priority Date/Time Associated Diagnosis Comments LIPID PANEL WITH REFLEX TO DIRECT LDL [...] Recently Relevant to Health Maintenance Results * (ABNORMAL) Lipid panel with reflex to direct LDL (08/25/2024 9:38 AM EST) Cholesterol 101 0 - 200 mg/dL LAB CHEMISTRY METHOD 08/25/2024 1:53 PM [facility] Triglycerides 109 0 - 150 mg/dL LAB CHEMISTRY METHOD 08/25/2024 1:53 PM [facility] HDL 31(L) >=40 mg/dL LAB CHEMISTRY METHOD 08/25/2024 1:53 PM [facility] LDL Calculated 48 0 - 100 mg/dL LAB CHEMISTRY METHOD 08/25/2024 1:53 PM [facility] VLDL Cholesterol Franck 21.8 mg/dL LAB CHEMISTRY METHOD 08/25/2024 1:53 PM [facility] Non HDL Chol. (LDL+VLDL) 70 <145 mg/dL LAB CHEMISTRY METHOD 08/25/2024 1:53 PM [facility] Chol/HDL Ratio 3.3 0.0 - 4.4 LAB CHEMISTRY METHOD 08/25/2024 1:53 PM [facility] Blood Venous blood specimen / Unknown Venipuncture / Unknown 08/25/2024 9:38 AM EST 08/25/2024 9:38 AM EST Albert Urias MD LAB BLOOD ORDERABLES Final Result [facility] [address] [place] [address], * Hepatitis C Screening (09/28/2023) Hepatitis C Screening Abstracted Historical Provider HEALTH MAINTENANCE Final Result * Cervical Cancer Screening: HPV (05/06/2021) Cervical Cancer Screening: HPV No Interpretation , Abstracted Historical Provider HEALTH MAINTENANCE Final Result from Last 3 Months or Most Recently Relevant to Health Maintenance Insurance [facility] [place] [employer] Care Teams Gravity Prospector Relationship Specialty Start Date End Date Albert Urias MD [address] [place] [address] PCP - General Internal Medicine 01/26/22
--- OUTSIDE RECORDS SUMMARY | 2025-07-16 20:23 | XMS_ITS | Clinical Summary ---
Author Organization [facility] Address [address] [place] [address] Care Team Providers Care Band Singer Name Role Phone Joseline Duran MD Primary Care Provider [phone] Allergies Active Allergy Reactions Criticality Noted Date [...] Screening (Pap Smear) 11/30/2012 COVID-19 Vaccine (3 - 2024-2 6 season) 2025 02/17/2021, 01/22/2021 Influenza Vaccine (#1) 2025 , 07/09/2019 DTap / Tdap / Td (2 - Td or Tdap) 09/10/2028 09/10/2018 Pneumococcal Vaccine Aged Out 06/23/2021 No long er eligible based on patient's age to complete this topic RSV Ped < 20 months Aged Out No longe r eligible based on patient's age to complete this topic Care Teams Band Singer Relationship Specialty Start Date End Date Joseline Duran MD PCP - General Internal Medicine 07/13/21
[2025-07-16 21:56] VITALS: BP 128/80; PULSE 66; RESP 16; TEMP 36.8; O2SAT 99
== END 2025-07-16 21:58 | disposition home or self-care (01) ==
PROVIDERS: Emergency Provider Emergency Medicine; PCP Internal Medicine
DX: S13.4XXA Sprain of ligaments of cervical spine, initial encounter (principal); R51.9 Headache, unspecified; M54.2 Cervicalgia; M54.50 Low back pain, unspecified; V43.52XA Car driver injured in collision with other type car in traffic accident, initial encounter; Y93.9 Activity, unspecified; Y92.410 Unspecified street and highway as the place of occurrence of the external cause; Y99.8 Other external cause status; Z79.899 Other long term (current) drug therapy
CPT/HCPCS: 70450; 72100; 72125; 96372; 99284; J1885

== ENCOUNTER → 2025-07-16 17:07 | Outpatient (BNV) | payer OTHER, SELFPAY | PROVIDERS: Visit Provider Radiology Diagnostic Radiology | DX: Z04.3 Encounter for examination and observation following other accident (principal); R51.9 Headache, unspecified; V89.2XXA Person injured in unspecified motor-vehicle accident, traffic, initial encounter | CPT/HCPCS: 70450; 72100; 72125 ==